=== PATIENT | female | born 1950 | race Asian ===

== ENCOUNTER 2020-01-05 12:11 | Inpatient (IN) | payer MEDICAID, MEDICARE ==
[~2020-01-05] VITALS: Ht 157.5 cm; Wt 83.9 kg
[2020-01-05 12:15] VITALS: BP 134/66
--- NOTE | 2020-01-05 12:22 | NUR ---
RN at bedside evaluating pt Med Hx: HTN, Hypothyroidism, DM, COPD, COPD, Afib, Long-term use of anticoagulant and antiarrhythmic Surgical Hx: Hip replacement, Hx of right mastectomy, knee replacement
[2020-01-05] MEDS ORDERED: NACL 0.9% 1,000 ML IV SCH (12:29)
--- NOTE | 2020-01-05 12:36 | NUR ---
SON AT BEDSIDE.
--- NOTE | 2020-01-05 12:36 | NUR ---
69 Y/F BIBA FROM [facility] FOR ABNORMAL LABS PER TRANPORT TEAM PT HAS PROBLEMS WTH LOW NA. EMS REPORTS GENERAL WEAKNESS "PT USED TO BE ABLE TO HOLD UP A CUP AND CANT NOW". PT REPORTS SAM. A&1 X 1, PTS SPEECH IS UNCLEAR. LUNGS CLEAR THROUGHOUT, BS ACTIVE THROUGHOUT. UNABLE TO ASSESS MUSLCE SYMMETRY AND MUSCLE STRENGTH DUE TO HX OF GBS. EDEMA NOTED ON B ARMS AND B HANDS. ABDOMEN LARGE, ROUND, AND DISTENDED. HX- COPD, CHF, DM, HTN, GBS, NKDA
--- NOTE | 2020-01-05 12:41 | NUR ---
Lab called for blood draw
--- NOTE | 2020-01-05 12:59 | NUR ---
LAB AT BEDSIDE.
--- NOTE | 2020-01-05 13:00 | NUR ---
URINE COLLECTED VIA STRAIGHT CATH USING STERILE PROCEDURE, PT TOLERATED WELL.
[2020-01-05 13:22] LABS: BASOPHILS % (AUTO) 0.3 % (0.0-2.0); EOSINOPHILS # (AUTO) 0.2 K/uL (0-0.4); EOSINOPHILS % (AUTO) 1.4 % (0.0-4.0); HEMATOCRIT 27.3 % (36-48); HEMOGLOBIN 8.6 g/dL (12.0-16.0); LYMPHOCYTES # (AUTO) 1.2 K/uL (2.5-16.5); LYMPHOCYTES % (AUTO) 9.2 % (20.5-51.1); MEAN CORPUSCULAR HEMOGLOBIN 25 pg (27-31); MEAN CORPUSCULAR HGB CONC 32 g/dL (33-37); MEAN CORPUSCULAR VOLUME 77.6 fL (80-94); MONOCYTES % (AUTO) 8.2 % (1.7-9.3); NEUTROPHILS # (AUTO) 10.3 K/uL (1.8-7.7); NEUTROPHILS % (AUTO) 80.9 % (42.2-75.2); PLATELET COUNT (AUTO) 379 K/uL (140-450); RED BLOOD CELL COUNT(AUTO) 3.52 MIL/uL (4.20-5.40); RED CELL DISTRIBUTION WIDTH 15.6 % (11.6-13.7); WHITE BLOOD COUNT (AUTO) 12.8 K/uL (4.8-10.8)
[2020-01-05 13:23] LABS: APPEARANCE,URINE CLOUDY (CLEAR); BILIRUBIN,URINE NEGATIVE (NEGATIVE); BLOOD, URINE 1+ (NEGATIVE); COLOR,URINE YELLOW (YELLOW); LEUKOCYTE ESTERASE ,URINE 3+ (NEGATIVE); NITRITE, URINE POSITIVE (NEGATIVE); UGLUCOSE NEGATIVE (NEGATIVE)
[2020-01-05 13:47] LABS: ALBUMIN 3.2 g/dL (3.4-5.0); ANION GAP 10.3 (8-16); ASPARTATE AMINOTRANSFERASE 32 U/L (15-37); CARBON DIOXIDE 33.3 mmol/L (21-32); CHLORIDE 90 mmol/L (98-107); CREATININE 0.4 mg/dL (0.6-1.3); GLUCOSE 128 mg/dL (74-106); POTASSIUM 4.6 mmol/L (3.5-5.1); SODIUM SERUM 129 mmol/L (136-145); TOTAL BILIRUBIN 0.3 mg/dL (0.0-1.0); UREA NITROGEN, BLOOD 5 mg/dL (7-18)
--- NOTE | 2020-01-05 13:58 | NUR ---
LACTIC ACID 2.[address] AU
[2020-01-05] MEDS ORDERED: cefTRIAXone 1,000 MG VIAL ONE (14:12)
[2020-01-05 14:33] LABS: WBC,URINE >25 (MANY) /HPF (0-5)
[2020-01-05] MEDS ORDERED: MORPHINE SULFATE 2 MG/ML SYR IVP PRN (15:05)
[2020-01-05] MEDS ORDERED: NACL 0.9% 1,500 ML IV ONE (15:05)
[2020-01-05] MEDS ORDERED: ONDANSETRON 4 MG/2 ML VIAL IM/IVP PRN (15:05)
[2020-01-05] MEDS ORDERED: LORazepam 2 MG/ML VIAL IM/IVP PRN (15:05)
[2020-01-05] MEDS ORDERED: AMLO5TAB PO (15:07)
[2020-01-05] MEDS ORDERED: ALEN70TA9 PO ×2 (15:07→17:53)
[2020-01-05] MEDS ORDERED: AMIO200T5 PO ×2 (15:07→17:14)
[2020-01-05] MEDS ORDERED: ASPI-1822 PO (15:07)
[2020-01-05] MEDS ORDERED: [UNRECOGNIZED DRUG - CODE] PO ×2 (15:10→17:47)
[2020-01-05] MEDS ORDERED: APIX5TAB PO (15:10)
[2020-01-05] MEDS ORDERED: SYN.05 PO (15:10)
[2020-01-05] MEDS ORDERED: CAR30 PO (15:10)
[2020-01-05] MEDS ORDERED: DIGO0.122 PO ×2 (15:10→17:14)
--- NOTE | 2020-01-05 15:20 | NUR ---
LAYING IN BED WITH EYES CLOSED, AROUSABLE TO NAME. RR EVEN AND UNLABORED. NO C/O AT THIS TIME WILL CONTINUE TO MONITOR
[2020-01-05 15:44] LABS: BARBITURATE, URINE NEG. ng/ml (NEG <=200); BENZODIAZEPINE, URINE NEG. ng/mL (NEG <=200); CANNABINOID, URINE NEG. ng/mL (NEG <=50); COCAINE, URINE NEG. ng/mL (NEG <=300); OPIATE, URINE NEG. ng/mL (NEG <=2000); PHENCYCLIDINE SCREEN,URINE NEG. ng/mL (NEG <=25)
[2020-01-05 15:52] LABS: CHOL/HDL RATIO 4.7 (1-4.5); FREE T4 (FREE THYROXINE) 1.75 ng/dL (0.76-1.46); MAGNESIUM 1.9 mg/dL (1.8-2.4); PHOSPHORUS 3.8 mg/dL (2.5-4.9); THYROID STIMULATING HORMONE 2.04 uIU/mL (0.34-3.74)
--- NOTE | 2020-01-05 15:55 | NUR ---
Admitted patient into room 123B from ED via gurney. Transferred to bed with 4-person total assist. Report received from ED nurse Brielle. Pt aaox1, verbally responsive in slovenian but has episodes of not responding to questions. Cervical brace in place. Medical hx obtained from Dinorah JEWELL from [facility] via telephone. 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 Cervical brace kept in place d/t poor neck control. Call light within reach.
--- NOTE | 2020-01-05 15:55 | NUR ---
Patient will be admitted to care of . Admited to TELEMETRY. Will go to room 123 B. Belongings list completed. Report to FANTA BOWERS.
[2020-01-05 16:00] VITALS: BP 135/57
[2020-01-05] MEDS: NACL 0.9% 1,000 ML IV SCH (16:00)
[2020-01-05 16:06] LABS: PROTHROMBIN TIME 10.2 secs (10.8-13.4)
[2020-01-05] MEDS ORDERED: PANT40EC PO (17:53)
[2020-01-05] MEDS ORDERED: METF1000 PO (17:53)
[2020-01-05] MEDS ORDERED: FURO-572 PO (17:53)
[2020-01-05] MEDS ORDERED: LISI10TA11 PO (17:53)
--- NOTE | 2020-01-05 18:00 | NUR ---
Pt in high fowlers in bed, asleep, respirations even & nonlabored on O2 @ 2Lpm via n/c. Soft collar in place. Right EJ IV intact with ongoing NS @ 130ml/h. Call light within reach.
[2020-01-05] MEDS ORDERED: DEXTROSE 50% 50 ML SYR IVP PRN (18:05)
[2020-01-05] MEDS ORDERED: INSU100S22 SUBQ (18:07)
[2020-01-05] MEDS: ALBUTEROL SULFATE/IPRATROPIU 3 ML SOL IH SCH (19:06)
--- NOTE | 2020-01-05 19:25 | NUR ---
RECEIVED BEDSIDE REPORT FROM DAY SHIFT NURSEELISSA. PT HAVING BREATHING TREATMENT. BREATHING EVEN AND UNLABORED. SKIN INTACT, WARM AND DRY TO TOUCH. IV SITE ON R IJ 20G, PATENT, INTACT, AND ASYMPTOMATIC. BOARD UPDATED, ALL SAFETY MEASUREMENT ARE MET. BED IN LOW POSITION, CALL LIGHT WITHIN REACH.
[2020-01-05 20:00] VITALS: BP 156/56
[2020-01-05] MEDS: DILTIAZEM 30 MG TAB PO SCH (20:10)
[2020-01-05] MEDS: BLOOD GLUCOSE MONITORING 1 DEV DEV FS SCH (20:10)
[2020-01-05] MEDS: amLODIPine 5 MG TAB PO SCH (20:11)
[2020-01-05] MEDS: metFORMIN 500 MG TAB PO SCH (20:11)
[2020-01-05] MEDS: INSULIN LANTUS 100 UNITS/ML 10 ML VIAL SUBQ SCH (20:20)
[2020-01-05] MEDS: INSULIN LISPRO SLIDING SCALE 100 UNITS/ML VIAL SUBQ PRN (20:20)
[2020-01-05] MEDS: APIXABAN 2.5 MG TAB PO SCH (20:20)
--- NOTE | 2020-01-05 20:20 | NUR ---
GIVEN CARDIZEM, ELIQUIS, METFORMIN, AMLODIPINE. BS CHECKED, 152, GIVEN HUMALOG AND LANTUS MD ORDERED. PT TOLERATED WELL.
[2020-01-05] MEDS ORDERED: NON-FORMULARY ITEM (Insulin Glargine,Hum.rec.anlog (Lantus Solostar) 20 UNIT) SUBQ SCH (21:00)
[2020-01-05] MEDS ORDERED: ZOLPIDEM 5 MG TAB PO PRN (21:00)
--- NOTE | 2020-01-05 22:20 | NUR ---
PT SLEEPING IN BED, NO ACUTE DISTRESS NOTED.
[2020-01-06] VITALS: BP 140/47
--- NOTE | 2020-01-06 00:05 | NUR ---
VS WITHIN PT'S BASELINE. NO ACUTE DISTRESS NOTED.
[2020-01-06] MEDS: guaiFENesin/CODEINE 100/10MG 5 ML UDC PO PRN ×2 (02:45→10:31)
--- NOTE | 2020-01-06 02:45 | NUR ---
PT COUGHING, GIVEN ROBITUSSIN/CODEINE MD ORDERED. PT TOLERATED WELL.
[2020-01-06 04:00] VITALS: BP 132/44
[2020-01-06] MEDS: DILTIAZEM 30 MG TAB PO SCH ×3 (04:20→20:16)
--- NOTE | 2020-01-06 04:20 | NUR ---
GIVEN CARDIZEM MD ORDERED, PT TOLERATED WELL.
[2020-01-06] MEDS: LEVOTHYROXINE 0.05 MG TAB PO SCH (05:55)
--- NOTE | 2020-01-06 05:55 | NUR ---
GIVEN SYNTHROID MD ORDERED. PT TOLERATED WELL. BS CHECKED, 104. NO INSULIN COVERAGE NEEDED.
[2020-01-06] MEDS: BLOOD GLUCOSE MONITORING 1 DEV DEV FS SCH ×5 (06:00→20:15)
[2020-01-06] MEDS: NACL 0.9% 1,000 ML IV SCH ×3 (06:26→16:27)
--- NOTE | 2020-01-06 06:41 | NUR ---
PT IN STABLE CONDITION, WILL ENDORSE PT TO DAY SHIFT NURSE FOR CONTINUOUS CARE.
[2020-01-06] MEDS: ALBUTEROL SULFATE/IPRATROPIU 3 ML SOL IH SCH ×3 (06:55→19:21)
--- NOTE | 2020-01-06 07:20 | NUR ---
RECEIVED PT FROM FUND ACCOUNTANT NURSE, CIRA, PT IS AWAKE AND SEATED ON THE BED, WITH SIDE RAILS UP AND CALL LIGHT WITHIN REACH, PT HAS A NECK COLLAR IN PLACE, AND AN IV LINE ON THE RT EJ G. 20 WITH NS INFUSING AT 130ML/HR, BUE AND BLE SEVERE WEAKNESS NOTED, SCD IN PLACE, ON O2 2L NC, PT HAS AN INTERMITTENT PRODUCTIVE COUGH, NO SIGN OF DISTRESS NOTED. WILL CONTINUE TO MONITOR PT.
[2020-01-06 07:57] VITALS: BP 156/45
--- NOTE | 2020-01-06 08:18 | NUR ---
PATIENT HAS BEEN SCREENED AND CATEGORIZED MODERATE NUTRITION RISK. PATIENT WILL BE SEEN WITHIN 3-5 DAYS OF ADMISSION. 01/08/20 01/10/[address]
[2020-01-06] MEDS ORDERED: IRBESARTAN 75 MG PO SCH (09:00)
[2020-01-06] MEDS: LISINOPRIL 10 MG TAB PO SCH (09:00)
[2020-01-06] MEDS ORDERED: IRBESARTAN 150 MG PO SCH (09:00)
--- NOTE | 2020-01-06 09:50 | NUR ---
HIP AND CHEST X-RAY WAS BEING DONE TO PT NOW.
[2020-01-06] MEDS: PANTOPRAZOLE 40 MG TABEC PO SCH (10:25)
[2020-01-06] MEDS: ASPIRIN 81 MG TAB.CHEW PO SCH (10:25)
[2020-01-06] MEDS: metFORMIN 500 MG TAB PO SCH ×2 (10:25→20:16)
[2020-01-06] MEDS: LACTOBACILLUS RHAMNOSUS GG 1 EACH CAP PO SCH (10:25)
[2020-01-06] MEDS: amLODIPine 5 MG TAB PO SCH ×2 (10:26→20:16)
[2020-01-06] MEDS: FUROSEMIDE 20 MG TAB PO SCH (10:26)
[2020-01-06] MEDS: AMIODARONE 200 MG TAB PO SCH (10:27)
[2020-01-06] MEDS: LOSARTAN 25 MG TAB PO SCH (10:28)
[2020-01-06] MEDS: APIXABAN 2.5 MG TAB PO SCH ×2 (10:30→20:19)
[2020-01-06] MEDS: HYDROcodone/APAP 5/325 MG 1 TAB TAB PO PRN (10:31)
--- NOTE | 2020-01-06 10:45 | NUR ---
DC PLANNIN YRS OLD FEMALE PATIENT WAS ADMITTED FROM [facility] WITH A DX OF SEVER SEPSIS DUE TO UTI. PT HAS A HX OF GUILLAIN RODRIGUEZ SYNDROME,COPD, CHRONIC RESP FAILURE,CHF,HTN, BREAST CA S/P RT BREAST MASTECTOMY. STARTED ROCEPHIN IV CULTURELLE PROBIOTIC PO ,IVF PT EVAL, BLOOD AND URINE CULTURE PENDING ,CXRAY SHOWED POSSIBLE INFILTRATES RIGHT HIP X-RAY PENDING FOR C/O RT HIP PAIN. DC PLAN TO GO BACK TO [facility] WHEN STABLE .CM TO FOLLOW. Addendum: 01/09/20 at 1503 by Mady Loera CM DC PLANNING: SEEN BY DR GONZALEZ GEAR DESIGN ENGINEER DC/D IVF, CONTINUE IV LASIX AND IV ABX MEROPENEM. DC PLAN TO GO BACK TO [facility] . CM TO FOLLOW Addendum: 01/10/20 at 1137 by Mady Loera CM DC PLANNING: SEEN BY ANDER CHOW DC IVF , CONTINUE IV ABX , BREATHING TREATMENT ,PT IS ON OXYMIZER 5L/NC , DR BENITES CONTINUE IV MEROPENEM . DC PLAN TO GO BACK TO [facility] WHEN STABLE. CM TO FOLLOW. Addendum: 01/11/20 at 3977 by Mady Loera CM DC PLANNING: CALLED [facility] [phone] SPOKE WITH GAGANDEEP STATED NO ISO BED AT THIS TIME. WILL CALL BACK WHEN ISO BED AVAILABLE. Addendum: 01/11/20 at 8544 by Mady Loera CM DC PLANNING: PER GAGANDEEP AT [facility] PT IS ON BED HOLD FOR 7 DAYS BUT SINCE SHE IS ON ISOLATION AND NEEDS IV MEROPENEM Q 8HRS AND HAS NO RN AT NIGHT THEY WILL CONSIDER TO TAKE HER BACK WHEN SHE IS COLONIZED. Addendum: 01/12/20 at 1637 by Mady Loera CM DC PLANNING CALLED [facility] SPOKE WITH GAGANDEEP RAM NO ISO BED. FAXED TO OTHER FACILITIES: [facility], [facility], [facility], [facility], [facility], AND [facility]. THEY ALL STATED NO ISO BED TODAY AND WILL CALL BACK WHEN ISO BED AVAILABLE. Addendum: 01/13/20 at 1609 by Mady Loera CM DC PLANNING: RECEIVED A CALL FROM GAGANDEEP AT [facility] , ACCEPTED PATIENT AND CAN GO TO ROOM 100A ON Thursday01/15/20 # TO GIVE REPORT [phone] ARRANGED TRANSPORT WITH [facility] [phone] # [id number] AND RESERVATION # [id number] SPOKE WITH BENJA AND AUTOMOTIVE TIRE WORKER TIME 1PM . PLS CALL GAGANDEEP AT [facility] [phone]
--- NOTE | 2020-01-06 11:25 | NUR ---
BLOOD GLUCOSE CHECKED NOW WITH 144 RESULT. NO INSULIN COVERAGE NEEDED. NO SIGNS OF DISTRESS. WILL CONTINUE TO MONITOR.
--- NOTE | 2020-01-06 11:27 | NUR ---
BLOOD GLUCOSE CHECK DONE TO PT AND RESULT IS 144, NO INSULIN COVERAGE NEEDED.
[2020-01-06 12:00] VITALS: BP 147/55
--- NOTE | 2020-01-06 12:05 | NUR ---
Material Reclaimer Note: I received a call from patient's son Sree Casas , he stated he would like me to check if the following snfs have a termite inspector bed available, [facility] , fax , [facility] , fax , and [facility] , fax . I faxed inquiries to [facility], [facility], and [facility]. Per Shalonda from [facility], they have 5 chcf beds available at this time and they will review referral once it is received. I provided Shalonda with patient's todd Balbuena phone number. Patient is from [facility] and patient's son Sree is in agreement with patient returning to [facility] if the above snfs cannot accept patient.
[2020-01-06 13:44] LABS: BASOPHILS % (AUTO) 0.3 % (0.0-2.0); EOSINOPHILS # (AUTO) 0.1 K/uL (0-0.4); EOSINOPHILS % (AUTO) 1.2 % (0.0-4.0); HEMATOCRIT 24.8 % (36-48); HEMOGLOBIN 7.9 g/dL (12.0-16.0); MEAN CORPUSCULAR HEMOGLOBIN 25 pg (27-31); MEAN CORPUSCULAR HGB CONC 32 g/dL (33-37); MEAN CORPUSCULAR VOLUME 77.4 fL (80-94); MONOCYTES # (AUTO) 0.9 K/uL (0.8-1.0); MONOCYTES % (AUTO) 7.7 % (1.7-9.3); NEUTROPHILS # (AUTO) 9.3 K/uL (1.8-7.7); NEUTROPHILS % (AUTO) 81.8 % (42.2-75.2); PLATELET COUNT (AUTO) 340 K/uL (140-450); RED CELL DISTRIBUTION WIDTH 15.4 % (11.6-13.7); WHITE BLOOD COUNT (AUTO) 11.4 K/uL (4.8-10.8)
[2020-01-06 13:53] LABS: ANION GAP 10.2 (8-16); CARBON DIOXIDE 31.8 mmol/L (21-32); CHLORIDE 95 mmol/L (98-107); CREATININE 0.4 mg/dL (0.6-1.3); GLUCOSE 163 mg/dL (74-106); SODIUM SERUM 133 mmol/L (136-145); UREA NITROGEN, BLOOD 2 mg/dL (7-18)
--- NOTE | 2020-01-06 13:58 | NUR ---
AFTERNOON MEDICATION GIVEN. PT. IS AWAKE AND IN BED. TOLERATED MEDICATION WELL. NO SIGNS OF DISTRESS. WILL CONTINUE TO MONITOR.
--- NOTE | 2020-01-06 15:17 | NUR ---
GAGANDEEP, ADMISSION COORDINATOR OF [facility] CALLED INFORMING THAT THE PT WILL BE PLACE ON A 7 DAYS BED HOLD. GAGANDEEP SAID SHE LEFT A MESSAGE TO STANLEY BARON.
--- NOTE | 2020-01-06 15:50 | NUR ---
P.T. NOTES P.T. CARLY COMPLETED; ENDORSED TO NURSING. Addendum: 01/06/20 at 1551 by Lynsey Riley PT Amended: Links added.
[2020-01-06 16:00] VITALS: BP 157/50
--- NOTE | 2020-01-06 16:29 | NUR ---
PT WAS GIVEN IV ROCEPHIN, BLOOD GLUCOSE CHECK DONE AND RESULT IS 147, NO INSULIN COVERAGE NEEDED, V/S TAKEN AND BP IS 157/50, HR 82, TEMP 98.7, O2 SAT 93% ON 2L O2.
--- NOTE | 2020-01-06 17:00 | NUR ---
PT'S IVF RATE WAS DECREASED TO 60ML/HR NOW PER MD.
--- NOTE | 2020-01-06 19:35 | NUR ---
RECIEVED PT AAOX2 TO 3 - EASILY FORGETS THE TOPIC CONVERSATION , POOR HISTORIAN , ON O2 AT 2LPM/NC - O2 SAT WNL , W/ PRODUCTIVE COUGH W/ WHITE PHLEGM . ON RESIDENTIAL THERAPIST , IV EMELI INTACT AND PATENT. LOW EDWIN SCALE DUE TO LILIMITED MOBILITY - HX GBS . POC DISCUSSED AND VERBALIZE FAIR UNDERSTANDING - NEEDS RE INFORCEMENT , CALL LIGHT WITHIN REACH , ON SAFETY / FALL PRECAUTION PROTOCOL . WILL CONT. TO MONITOR.
--- NOTE | 2020-01-06 19:35 | NUR ---
ENDORSED PT. TO COVER OPERATOR NURSE FOR CONTINUITY OF CARE.
--- NOTE | 2020-01-06 19:53 | NUR ---
GAVE PATIENT BOB TO SXNED HER MOUTH
[2020-01-06 20:00] VITALS: BP 136/67
[2020-01-06] MEDS: ACETAMINOPHEN 325 MG TAB PO PRN (20:25)
[2020-01-06] MEDS: INSULIN LANTUS 100 UNITS/ML 10 ML VIAL SUBQ SCH (20:27)
[2020-01-06] MEDS: INSULIN LISPRO SLIDING SCALE 100 UNITS/ML VIAL SUBQ PRN (20:49)
--- NOTE | 2020-01-06 22:00 | NUR ---
MADE ROUNDS , RELATIVES AT BEDSIDE . O2 SAT WNL - ON O2 AT 2LPM/NC , ON DIRECTOR RISK. WILL CONT. TO MONITOR.
[2020-01-07] VITALS: BP 135/82
--- NOTE | 2020-01-07 | NUR ---
VS CHECKED AND CHARTED. PT REPOSITIONED, FOUND OXYGEN TUBING NOT ON PATIENT, TUBING REAPPLIED. PT INTERMITTENTLY COUGHING, CLEANED UP SPUTUM ON CHIN. MADE PT COMFORTABLE, PT DENIES ANY PAIN AT THIS TIME. Addendum: 01/08/20 at 0646 by Berenice Funk RN CORRECTED DATE: 01/08 0000
--- NOTE | 2020-01-07 | NUR ---
MADE ROUNDS , DENIES ANY PAIN - O2 SAT. WNL - ON TUBE BLOWER. WILL CONT. TO MONITOR.
--- NOTE | 2020-01-07 02:00 | NUR ---
MADE ROUNDS , SHE SAID MY STOOL IS SEEMS HARD - WILL MEDICATE ORDERED . O2 SAT WNL - ON 02 AT 2LPM.- WILL CONT. TO MONITOR.
[2020-01-07] MEDS: NACL 0.9% 1,000 ML IV SCH ×2 (03:29→16:02)
[2020-01-07 04:00] VITALS: BP 130/90
--- NOTE | 2020-01-07 04:00 | NUR ---
ROBITUSSIN W/ CODEINE GIVEN P.O DUE TO PERSISTENT COUGH ORDERED . COLACE GIVEN ORDERED . O2 SAT WNL . WILL CONT. TO MONITOR.
[2020-01-07] MEDS: DOCUSATE SODIUM 100 MG GELCAP PO PRN (04:04)
[2020-01-07] MEDS: DILTIAZEM 30 MG TAB PO SCH ×3 (04:04→20:31)
[2020-01-07] MEDS: guaiFENesin/CODEINE 100/10MG 5 ML UDC PO PRN ×2 (04:05→20:33)
--- NOTE | 2020-01-07 06:00 | NUR ---
MADE ROUNDS , O2 SAT WNL , DENIES ANY PAIN , ON NATURAL RESOURCES PROFESSOR - SR
--- NOTE | 2020-01-07 06:15 | NUR ---
LATEST CR ON TRACING - 50 , LATEST BP 90/60 , DENIES CHEST PAIN , RESTING ON BED COMFORTABLY - INFORMED ROSA . WILL CONT. TO MONITOR. CALL LIGHT WITHIN REACH. Addendum: 01/07/20 at 0618 by Mary Collado RN THE ABOVE NURSES'S NOTE DATED 01/07/20 TIME 0615 IS AN ERROR ENTRY - MARCELLE
[2020-01-07] MEDS: LEVOTHYROXINE 0.05 MG TAB PO SCH (06:28)
[2020-01-07 06:58] LABS: BASOPHILS # (AUTO) 0.1 K/uL (0.00-0.22); BASOPHILS % (AUTO) 0.4 % (0.0-2.0); EOSINOPHILS # (AUTO) 0.2 K/uL (0-0.4); EOSINOPHILS % (AUTO) 1.6 % (0.0-4.0); HEMATOCRIT 24.3 % (36-48); HEMOGLOBIN 7.8 g/dL (12.0-16.0); LYMPHOCYTES % (AUTO) 8.4 % (20.5-51.1); MEAN CORPUSCULAR HEMOGLOBIN 25 pg (27-31); MEAN CORPUSCULAR HGB CONC 32 g/dL (33-37); MONOCYTES # (AUTO) 1.1 K/uL (0.8-1.0); MONOCYTES % (AUTO) 8.8 % (1.7-9.3); NEUTROPHILS # (AUTO) 9.7 K/uL (1.8-7.7); NEUTROPHILS % (AUTO) 80.8 % (42.2-75.2); PLATELET COUNT (AUTO) 332 K/uL (140-450); RED BLOOD CELL COUNT(AUTO) 3.15 MIL/uL (4.20-5.40); RED CELL DISTRIBUTION WIDTH 16.2 % (11.6-13.7)
[2020-01-07 07:07] LABS: ANION GAP 7.5 (8-16); CARBON DIOXIDE 32.9 mmol/L (21-32); CHLORIDE 96 mmol/L (98-107); CREATININE 0.3 mg/dL (0.6-1.3); GLUCOSE 129 mg/dL (74-106); POTASSIUM 3.4 mmol/L (3.5-5.1); SODIUM SERUM 133 mmol/L (136-145); UREA NITROGEN, BLOOD 1 mg/dL (7-18)
[2020-01-07 07:08] LABS: MAGNESIUM 1.4 mg/dL (1.8-2.4)
[2020-01-07] MEDS: ALBUTEROL SULFATE/IPRATROPIU 3 ML SOL IH SCH ×3 (07:10→19:16)
--- NOTE | 2020-01-07 07:18 | NUR ---
ENDORSED TO AM SHIFT FOR CONT. OF CARE - PT STABLE .
--- NOTE | 2020-01-07 07:19 | NUR ---
RECEIVED REPORT FROM NIGHT NURSE, PT AA0X2, PT ON 2L NC O2, PT HAS R EXTERNAL JUGULAR 20G RUNNING NS AT 60 ML, INTRODUCE SELF, UPDATED WHITEBOARD, PT IS STABLE, CALL LIGHT WITHIN REACH. WILL CONTINUE TO MONITOR.
[2020-01-07 08:00] VITALS: BP 155/50
[2020-01-07] MEDS ORDERED: MAG SULF 2000 MG/WATER PREMIX 50 ML IV SCH (09:00)
[2020-01-07] MEDS ORDERED: POTASSIUM CHLORIDE 10 MEQ TABER PO SCH (09:00)
[2020-01-07] MEDS: FUROSEMIDE 20 MG TAB PO SCH (09:39)
[2020-01-07] MEDS: LACTOBACILLUS RHAMNOSUS GG 1 EACH CAP PO SCH (09:40)
[2020-01-07] MEDS: AMIODARONE 200 MG TAB PO SCH (09:41)
[2020-01-07] MEDS: LISINOPRIL 10 MG TAB PO SCH (09:41)
[2020-01-07] MEDS: ASPIRIN 81 MG TAB.CHEW PO SCH (09:42)
[2020-01-07] MEDS: metFORMIN 500 MG TAB PO SCH ×2 (09:42→20:32)
[2020-01-07] MEDS: LOSARTAN 25 MG TAB PO SCH (09:42)
[2020-01-07] MEDS: PANTOPRAZOLE 40 MG TABEC PO SCH (09:43)
[2020-01-07] MEDS: amLODIPine 5 MG TAB PO SCH ×2 (09:43→20:31)
[2020-01-07] MEDS: DIGOXIN 0.125 MG TAB PO SCH (09:44)
[2020-01-07] MEDS: ALBUTEROL SULFATE/IPRATROPIU 3 ML SOL IH PRN ×2 (09:44→17:57)
[2020-01-07] MEDS: APIXABAN 2.5 MG TAB PO SCH ×2 (09:45→20:31)
--- NOTE | 2020-01-07 11:26 | NUR ---
CALLED DR PALENCIA FOR AN ORDERED OF Z-GUARD FOR PT PERINEAL, WILL APPLY ONCE ORDERED RECEIVED
[2020-01-07] MEDS: BLOOD GLUCOSE MONITORING 1 DEV DEV FS SCH ×3 (11:59→20:47)
[2020-01-07 12:00] VITALS: BP 154/56
[2020-01-07] MEDS: INSULIN LISPRO SLIDING SCALE 100 UNITS/ML VIAL SUBQ PRN ×3 (12:11→20:18)
--- NOTE | 2020-01-07 12:11 | NUR ---
GAVE PT LISPRO FOR BLOOD GLUCOSE OF 167, 2 UNITS, PT EDUCATION GIVEN, PT TOLERATED WELL, CALL LIGHT WITHIN REACH.
[2020-01-07] MEDS: ACETAMINOPHEN 325 MG TAB PO PRN (12:37)
--- NOTE | 2020-01-07 12:37 | NUR ---
GAVE PT TYLENOL FOR HEADACHE, EDUCATION GIVEN, PT VERBALIZED UNDERSTANDING, PT STABLE, CALL LIGHT WITHIN REACH.
--- NOTE | 2020-01-07 13:20 | NUR ---
PT STILL HAS HEADACHE, PUT COOLING COMPRESSION ON HEAD, SON AT BEDSIDE, PT STABLE, CALL LIGHT WITHIN REACH.
[2020-01-07 16:00] VITALS: BP 161/55
--- NOTE | 2020-01-07 16:00 | NUR ---
PT MORE COOLING MEASURES ON PT PT STATES SHE IS FEELING HOT, PT DOES NOT HAVE A TEMPERATURE, CALL LIGHT WITHIN REACH.
[2020-01-07 16:36] LABS: BASOPHILS # (AUTO) 0.1 K/uL (0.00-0.22); BASOPHILS % (AUTO) 0.4 % (0.0-2.0); EOSINOPHILS # (AUTO) 0.1 K/uL (0-0.4); EOSINOPHILS % (AUTO) 0.4 % (0.0-4.0); HEMATOCRIT 23.1 % (36-48); HEMOGLOBIN 7.4 g/dL (12.0-16.0); LYMPHOCYTES # (AUTO) 0.9 K/uL (2.5-16.5); LYMPHOCYTES % (AUTO) 7.1 % (20.5-51.1); MEAN CORPUSCULAR HEMOGLOBIN 25 pg (27-31); MEAN CORPUSCULAR HGB CONC 32 g/dL (33-37); MEAN CORPUSCULAR VOLUME 76.7 fL (80-94); MONOCYTES # (AUTO) 1.2 K/uL (0.8-1.0); MONOCYTES % (AUTO) 9.4 % (1.7-9.3); NEUTROPHILS # (AUTO) 10.5 K/uL (1.8-7.7); NEUTROPHILS % (AUTO) 82.7 % (42.2-75.2); PLATELET COUNT (AUTO) 341 K/uL (140-450); RED BLOOD CELL COUNT(AUTO) 3.01 MIL/uL (4.20-5.40); RED CELL DISTRIBUTION WIDTH 15.7 % (11.6-13.7); WHITE BLOOD COUNT (AUTO) 12.7 K/uL (4.8-10.8)
[2020-01-07] MEDS: FERROUS SULFATE 325 MG TABEC PO SCH (18:38)
--- NOTE | 2020-01-07 19:05 | NUR ---
GAVE REPORT TO NIGHT NURSE FOR CONTINUITY OF CARE, PT STABLE
--- NOTE | 2020-01-07 19:10 | NUR ---
RECEIVED BEDSIDE REPORT FROM AM SHIFT RN GRISELDA, FOR PT'S CONTINUITY OF CARE. PT IS AWAKE AND ALERT, PRIMARILY MONGOLIAN SPEAKING, CAN SPEAK AND UNDERSTAND SOME BENGALI, IS ON 3 1/2 O2 VIA NC, HAS NECK BRACE FROM CERVICAL FRACTURE IN 2019, HAS RIGHT EXTERNAL JUGULAR 20G NS AT 60ML/HR, DENIES ANY PAIN OR DISCOMFORT AT THIS TIME. EXPLAIN TO PT THE LAUNCHING PAD MECHANIC ROUTINE, PT VERBALIZED UNDERSTANDING. SAFETY MEASURES IN PLACE, AND CALL LIGHT IS WITHIN REACH. WILL MONITOR PT THROUGHOUT SHIFT.
--- NOTE | 2020-01-07 19:22 | NUR ---
RECEIVED PT FROM AM SHIFT. PT IN NO APPARENT RESPIRATORY DISTRESS AT THIS TIME; HR 94, RR 20, SPO2 94% ON 4L NC. TITRATE O2 TO 3L NC WITH SPO2 OF 92%. HHN TX GIVEN ORDERED WITH NO ADVERSE REACTION. BVM AT BEDSIDE AND HOB > 30. WILL CONTINUE TO MONITOR PT.
[2020-01-07 20:00] VITALS: BP 153/55
[2020-01-07] MEDS: INSULIN LANTUS 100 UNITS/ML 10 ML VIAL SUBQ SCH (20:17)
[2020-01-07] MEDS ORDERED: PIPERACILLIN/TAZOBACTAM 3.375 GM VIAL IV ONE (20:23)
[2020-01-07] MEDS: PIPERACILLIN/TAZOBACTAM 3.375 GM in DEXTROSE 5% 50 ML IV SCH (20:32)
--- NOTE | 2020-01-07 20:33 | NUR ---
BLOOD GLUCOSE CHECKED AND CHARTED. PT REQUESTED FOR COUGH MEDICINE. ADMINISTERED SCHEDULED PO, SUBQ, AND IV ABX ORDERED. ADMINISTERED SUBQ INSULIN PER SS PROTOCOL, AND ADMINISTERED PRN COUGH MEDICATION ORDERED. CRUSHED PO MEDICATION IN APPLESAUCE, PT TOLERATED THEM WELL. PT CHANGED AND MADE COMFORTABLE, APPLIED OPTIFOAM ON SACRAL AREA. PT DENIES PAIN. WILL CONTINUE TO MONITOR PT.
[2020-01-07] MEDS: Z-GUARD PASTE TP PRN (20:52)
[2020-01-08] VITALS: BP 157/64
--- NOTE | 2020-01-08 02:00 | NUR ---
MADE ROUNDS. PT APPEARS TO BE ASLEEP WITH NO SIGNS OF DISTRESS. WILL CONTINUE TO MONITOR PT.
[2020-01-08 04:00] VITALS: BP 157/65
[2020-01-08] MEDS: ACETAMINOPHEN 325 MG TAB PO PRN (04:31)
--- NOTE | 2020-01-08 04:31 | NUR ---
PT C/O HEADACHE. ADMINISTERED PRN PO PAIN MEDICATION ORDERED. PT TOLERATED IT WELL. MADE PT COMFORTABLE AND ENCOURAGED PT TO GET SOME REST AND SLEEP.
[2020-01-08] MEDS: PIPERACILLIN/TAZOBACTAM 3.375 GM in DEXTROSE 5% 50 ML IV SCH ×3 (04:33→21:22)
[2020-01-08] MEDS ORDERED: PIPERACILLIN/TAZOBACTAM 3.375 GM VIAL IV ONE (04:33)
[2020-01-08] MEDS: LEVOTHYROXINE 0.05 MG TAB PO SCH (05:38)
[2020-01-08] MEDS: DILTIAZEM 30 MG TAB PO SCH ×3 (05:39→21:19)
--- NOTE | 2020-01-08 05:45 | NUR ---
BLOOD GLUCOSE CHECKED AND CHARTED. NO INSULIN COVERAGE NEEDED. ADMINISTERED SCHEDULED MEDICATIONS ORDERED. PT TOLERATED THEM WELL. PLACED FOAM CUSHION ON OXYGEN TUBING FOR COMFORT. MADE PT COMFORTABLE.
[2020-01-08] MEDS: BLOOD GLUCOSE MONITORING 1 DEV DEV FS SCH ×4 (05:48→21:28)
--- NOTE | 2020-01-08 06:21 | NUR ---
PT APPEARS TO BE ASLEEP. NOTED TO BE YELLING INTERMITTENTLY FOR NURSE. CHECKED PT BUT PT APPEARS TO BE ASLEEP. NO SIGNS OF DISTRESS NOTED. WILL ENDORSE TO AM SHIFT RN FOR PT'S CONTINUITY OF CARE.
[2020-01-08 07:16] LABS: BASOPHILS # (AUTO) 0.1 K/uL (0.00-0.22); EOSINOPHILS # (AUTO) 0.1 K/uL (0-0.4); EOSINOPHILS % (AUTO) 0.8 % (0.0-4.0); HEMATOCRIT 24.5 % (36-48); LYMPHOCYTES # (AUTO) 1.5 K/uL (2.5-16.5); LYMPHOCYTES % (AUTO) 10.5 % (20.5-51.1); MEAN CORPUSCULAR HEMOGLOBIN 25 pg (27-31); MEAN CORPUSCULAR HGB CONC 33 g/dL (33-37); MEAN CORPUSCULAR VOLUME 75.7 fL (80-94); MONOCYTES # (AUTO) 1.3 K/uL (0.8-1.0); MONOCYTES % (AUTO) 8.6 % (1.7-9.3); NEUTROPHILS # (AUTO) 11.6 K/uL (1.8-7.7); NEUTROPHILS % (AUTO) 79.1 % (42.2-75.2); PLATELET COUNT (AUTO) 384 K/uL (140-450); RED BLOOD CELL COUNT(AUTO) 3.24 MIL/uL (4.20-5.40); RED CELL DISTRIBUTION WIDTH 15.8 % (11.6-13.7); WHITE BLOOD COUNT (AUTO) 14.6 K/uL (4.8-10.8)
[2020-01-08] MEDS: ALBUTEROL SULFATE/IPRATROPIU 3 ML SOL IH SCH ×3 (07:16→19:57)
[2020-01-08 07:23] LABS: ANION GAP 10.1 (8-16); CARBON DIOXIDE 30.9 mmol/L (21-32); CHLORIDE 93 mmol/L (98-107); CREATININE 0.4 mg/dL (0.6-1.3); GLUCOSE 103 mg/dL (74-106); SODIUM SERUM 130 mmol/L (136-145); UREA NITROGEN, BLOOD 4 mg/dL (7-18)
[2020-01-08 07:28] LABS: MAGNESIUM 1.8 mg/dL (1.8-2.4); PHOSPHORUS 3.9 mg/dL (2.5-4.9)
--- NOTE | 2020-01-08 07:30 | NUR ---
RECEIVED REPORT FROM TOWER SUPERVISOR RN AT BEDSIDE FOR CONTINUITY OF CARE. PATIENT AWAKE AND ALERT. RESPIRATIONS EVEN AND UNLABORED ON 3L O2 VIA NC. IV SITE TO RT EXTERNAL JUGULAR, PATENT, INTACT, ASYMPTOMATIC INFUSING IVF WELL. UPDATED BOARD. PATIENT DENIES PAIN AT THIS TIME. VERBALIZED PLAN OF CARE TO PATIENT. SHE VERBALIZED UNDERSTANDING. SAFETY, ISOLATION, AND ASPIRATION PRECAUTIONS IN PLACE, BED IN LOWEST POSITION WITH BRAKES AND ALARM ON, CALL LIGHT WITHIN REACH, WILL CONTINUE TO MONITOR PATIENT.
[2020-01-08 08:00] VITALS: BP 139/53
[2020-01-08] MEDS ORDERED: CRUSHER, PILL MC ONE (09:49)
[2020-01-08] MEDS: LACTOBACILLUS RHAMNOSUS GG 1 EACH CAP PO SCH (09:52)
[2020-01-08] MEDS: metFORMIN 500 MG TAB PO SCH ×2 (09:52→21:21)
[2020-01-08] MEDS: AMIODARONE 200 MG TAB PO SCH (09:56)
[2020-01-08] MEDS: amLODIPine 5 MG TAB PO SCH ×2 (09:57→21:19)
[2020-01-08] MEDS: FUROSEMIDE 20 MG TAB PO SCH ×2 (09:58→21:24)
[2020-01-08] MEDS: FERROUS SULFATE 325 MG TABEC PO SCH ×2 (09:58→16:18)
[2020-01-08] MEDS: PANTOPRAZOLE 40 MG TABEC PO SCH (09:58)
[2020-01-08] MEDS: LISINOPRIL 20 MG TAB PO SCH (09:59)
[2020-01-08] MEDS: ASPIRIN 81 MG TAB.CHEW PO SCH (10:00)
[2020-01-08] MEDS: APIXABAN 2.5 MG TAB PO SCH ×2 (10:01→21:25)
[2020-01-08] MEDS: NACL 0.9% 1,000 ML IV SCH (10:03)
--- NOTE | 2020-01-08 10:05 | NUR ---
ORDERED MEDICATIONS GIVEN. PATIENT TOLERATED THEM WELL. SAFETY AND ISOLATION PRECAUTIONS IN PLACE, CALL LIGHT WITHIN REACH, WILL CONTINUE TO MONITOR PATIENT.
[2020-01-08] MEDS ORDERED: FUROSEMIDE 20 MG/2 ML VIAL IVP SCH (10:30)
--- NOTE | 2020-01-08 10:31 | NUR ---
PATIENT C/O PAIN ON RIGHT KNEE, PRN PAIN MEDICATION GIVEN. PATIENT TOLERATED IT WELL. WILL CONTINUE TO MONITOR PATIENT.
[2020-01-08 12:45] VITALS: BP 139/56
--- NOTE | 2020-01-08 13:18 | NUR ---
PATIENT'S FAMILY REQUESTED TO SPEAK TO DOCTOR. INFORMED DR. PALENCIA. DR PALENCIA IN TO SPEAK TO PATIENT'S FAMILY MEMBERS.
[2020-01-08 16:00] VITALS: BP 136/50
[2020-01-08] MEDS: Z-GUARD PASTE TP PRN (16:18)
[2020-01-08] MEDS: HYDROcodone/APAP 5/325 MG 1 TAB TAB PO PRN ×2 (17:06→21:50)
[2020-01-08] MEDS: INSULIN LISPRO SLIDING SCALE 100 UNITS/ML VIAL SUBQ PRN ×2 (17:11→21:32)
--- NOTE | 2020-01-08 17:11 | NUR ---
BLOOD SUGAR 189, COVERAGE GIVEN. PT C/O OF NECK PAIN, PATIENT MEDICATION WITH PRN PAIN MEDICATION. PATIENT TOLERATED IT WELL. PATIENT'S DAUGHTER HORACE AND FAMILY IN TO VISIT PATIENT. DR. PALENCIA SPOKE WITH HORACE AND UPDATED HER WITH PATIENT'S STATUS AND PLAN OF CARE. WILL CONTINUE TO MONITOR PATIENT.
--- NOTE | 2020-01-08 17:20 | NUR ---
PATIENT HAD LARGE SOFT BROWN BM AND VOIDED. PATIENT CLEANED UP AND CHANGED. PATIENT REPOSITIONED TO OFFLOAD PRESSURE AREAS AND FOR COMFORT. PATIENT'S FAMILY AT BEDSIDE, EDUCATED THEM ABOUT ISOLATION PRECAUTIONS, THEY VERBALIZED UNDERSTANDING. SAFETY AND ISOLATION PRECAUTIONS IN PLACE, CALL LIGHT WITHIN REACH, WILL CONTINUE TO MONITOR PATIENT.
--- NOTE | 2020-01-08 17:40 | NUR ---
PATIENT C/O PAIN FROM POSITIONING ON HER SIDE. EDUCATED PATIENT ABOUT WHY PATIENT BEING TURNED Q2H. PATIENT VERBALIZED UNDERSTANDING BUT WANTS TO BE TURNED BACK ON HER BACK. DAUGHTER HORACE AT BEDSIDE, INFORMED HER ABOUT PATIENT'S REQUEST AND REASON FOR PATIENT BEING TURNED. SHE VERBALIZED UNDERSTANDING AND WILL SPEAK TO PATIENT.
--- NOTE | 2020-01-08 19:25 | NUR ---
REPORT GIVEN TO NETWORK SUPPORT NURSE AT BEDSIDE FOR CONTINUITY OF CARE. PATIENT IN STABLE CONDITION.
--- NOTE | 2020-01-08 19:26 | NUR ---
RECEIVED ENDORSEMENT AT BED SIDE FROM AM SHIFT RN. PATIENT LYING IN BED. AWAKE ALERT. ABLE TO MAKE NEEDS KNOWN. RESPIRATION EVEN AND UNLABORED. NO SOB NOTED. DENIES PAIN AT THIS TIME. ON CONTACT PRECAUTION FOR ESBL URINE. IV SITE AT RIGHT EJ. INTACT AND PATENT. NOTED SKIN TEAR AT PERINEAL AREA. PATIENT IS BEDBOUND. INCONTINENT. CONTACT ISO PRECAUTION OBSERVED AT ALL TIMES. SAFETY MEASURES IN PLACE. BED ALARM ACTIVATED. CALL LIGHT WITHIN REACH. PLAN OF CARE WAS DISCUSSED. WILL CONTINUE TO MONITOR.
[2020-01-08 20:00] VITALS: BP 132/60
--- NOTE | 2020-01-08 20:02 | NUR ---
RECEIVED PT FROM AM SHIFT. PT IN NO APPARENT RESPIRATORY DISTRESS AT THIS TIME; HR 77, RR 20, SPO2 91% ON 3L NC. ORDER TO KEEP O2 88%-92%. BREATH SOUNDS WERE COARSE. HHN TX GIVEN ORDERED WITH NO ADVERSE REACTION. BVM AT BEDSIDE AND HOB > 30. WILL CONTINUE TO MONITOR PT.
--- NOTE | 2020-01-08 21:19 | NUR ---
PATIENT IS AWAKE. ADMINISTERED ALL DUE MEDS PER MD ORDER. TOLERATED WELL. MEDICATION EDUCATION PROVIDED. NO C/O PAIN AT THIS TIME. NO DISTRESS NOTED. SAFETY MEASURES IN PLACE. LOW BED AND BED ALARM ACTIVATED. CALL LIGHT WITHIN REACH. WILL CONTINUE TO MONITOR.
[2020-01-08] MEDS: INSULIN LANTUS 100 UNITS/ML 10 ML VIAL SUBQ SCH (21:28)
--- NOTE | 2020-01-08 21:50 | NUR ---
PATIENT C/O NECK PAIN 04/25. REPOSITIONED. ENCOURAGED RELAXATION TECHNIQUE. PAIN MED GIVEN PO PER MD ORDER. TOLERATED WELL. NO SOB NOTED. WILL CONTINUE TO MONITOR.
[2020-01-09] VITALS: BP 156/62
--- NOTE | 2020-01-09 00:30 | NUR ---
PATIENT AGREED TO HAVE A BLOOD TRANSFUSION AND LET THE SIGNIFICANT OTHER SIGNED THE CONSENT. Addendum: 01/09/20 at 0601 by Austen Palacios RN WRONG PATIENT
--- NOTE | 2020-01-09 01:35 | NUR ---
PATIENT IS RESTLESS. KEEP COMPLAINING SHES HOT. CHECKED VITALS BP 141/62 P 81 SPO2 88 ON 3L NC O2. NO DISTRESS NOTED. INCREASED O2 TO 5L. PATIENT SPO2 INCREASED TO 94%, WILL CONTINUE TO MONITOR.
--- NOTE | 2020-01-09 02:04 | NUR ---
RECHECKED PATIENT. PATIENT IS ASLEEP. DECREASED O2 TO 3L. PATIENT IS SATING 92% WILL CONTINUE TO MONITOR.
[2020-01-09 04:00] VITALS: BP 156/62
--- NOTE | 2020-01-09 04:10 | NUR ---
VITALS WERE TAKEN. PATIENT IS IN STABLE CONDITION. WILL CONTINUE TO MONITOR.
[2020-01-09] MEDS ORDERED: MEROPENEM 500 MG VIAL IV ONE (04:52)
[2020-01-09] MEDS: MEROPENEM 500 MG in NACL 0.9% 50 ML IV SCH ×3 (04:55→20:13)
[2020-01-09] MEDS: DILTIAZEM 30 MG TAB PO SCH ×3 (04:55→20:13)
[2020-01-09] MEDS: LEVOTHYROXINE 0.05 MG TAB PO SCH (06:17)
[2020-01-09 06:29] LABS: ANION GAP 8.5 (8-16); CARBON DIOXIDE 31.6 mmol/L (21-32); CHLORIDE 85 mmol/L (98-107); CREATININE 0.3 mg/dL (0.6-1.3); GLUCOSE 142 mg/dL (74-106); POTASSIUM 4.1 mmol/L (3.5-5.1); UREA NITROGEN, BLOOD 4 mg/dL (7-18)
[2020-01-09 06:33] LABS: MAGNESIUM 1.4 mg/dL (1.8-2.4); PHOSPHORUS 3.3 mg/dL (2.5-4.9)
[2020-01-09 06:35] LABS: SODIUM SERUM 121 mmol/L (136-145)
[2020-01-09] MEDS: ALBUTEROL SULFATE/IPRATROPIU 3 ML SOL IH SCH ×3 (07:05→19:21)
[2020-01-09 07:16] LABS: BASOPHILS # (AUTO) 0.2 K/uL (0.00-0.22); BASOPHILS % (AUTO) 0.9 % (0.0-2.0); EOSINOPHILS # (AUTO) 0.2 K/uL (0-0.4); EOSINOPHILS % (AUTO) 0.9 % (0.0-4.0); HEMATOCRIT 24.3 % (36-48); HEMOGLOBIN 7.9 g/dL (12.0-16.0); LYMPHOCYTES % (AUTO) 5.6 % (20.5-51.1); MEAN CORPUSCULAR HEMOGLOBIN 25 pg (27-31); MEAN CORPUSCULAR HGB CONC 33 g/dL (33-37); MEAN CORPUSCULAR VOLUME 76.2 fL (80-94); MONOCYTES # (AUTO) 1.5 K/uL (0.8-1.0); NEUTROPHILS # (AUTO) 15.4 K/uL (1.8-7.7); NEUTROPHILS % (AUTO) 84.6 % (42.2-75.2); PLATELET COUNT (AUTO) 421 K/uL (140-450); RED BLOOD CELL COUNT(AUTO) 3.19 MIL/uL (4.20-5.40); WHITE BLOOD COUNT (AUTO) 18.2 K/uL (4.8-10.8)
[2020-01-09] MEDS: BLOOD GLUCOSE MONITORING 1 DEV DEV FS SCH ×4 (07:26→20:30)
--- NOTE | 2020-01-09 07:27 | NUR ---
ENDORSED PATIENT TO DAY SHIFT NURSE. PATIENT IS IN STABLE CONDITION.
--- NOTE | 2020-01-09 07:30 | NUR ---
RECEIVED REPORT FROM NIGHT NURSE. PATIENT IS IN BED, AAOX2. RESPIRATION EVEN AND UNLABORED. INTRODUCED SELF. RT AT BEDSIDE, PATIENT RECEIVING BREATHING TREATMENTS. IV INTACT AND PATENT TO RIGHT EJ WITH NS 30ML/HR INFUSING. CERVICAL COLLAR IN PLACE. BED IN LOW POSITION. BED ALARM ON. SAFETY MEASURES IN PLACE. CALL LIGHT WITHIN REACH.
[2020-01-09 08:00] VITALS: BP 156/50
[2020-01-09] MEDS: FERROUS SULFATE 325 MG TABEC PO SCH ×2 (08:00→16:31)
--- NOTE | 2020-01-09 08:05 | NUR ---
DR. MEDINA AT BEDSIDE.
[2020-01-09 08:08] LABS: FOLIC ACID 8.5 ng/mL (>3.0)
--- NOTE | 2020-01-09 08:10 | NUR ---
PATIENT WILL BE PLACED ON BIPAP. RT AT BEDSIDE. PATIENT IS CURRENTLY WITH O2 SATURATION 85-88% WITH O2 @ 5L NC. DR. ADAM IZQUIERDO.
--- NOTE | 2020-01-09 08:12 | NUR ---
PT PLACED ON BIPAP 12/5, R12, FIO2 40% DUE TO CRITICAL CO2 ABG RESULT AND PT DESATURATING ON 5L NC. DR. MEDINA AWARE. PROTECTA GEL PLACED UNDER MASK FOR SKIN PROTECTION. BIPAP IS PLUGGED INTO A RED OUTLET WITH ALARMS ON AND FUNCTIONING. WILL CONTINUE TO MONITOR.
[2020-01-09] MEDS ORDERED: MAG SULF 2000 MG/WATER PREMIX 100 ML IV SCH (08:15)
[2020-01-09] MEDS: FUROSEMIDE 20 MG TAB PO SCH (08:23)
[2020-01-09] MEDS: LISINOPRIL 20 MG TAB PO SCH (08:24)
[2020-01-09] MEDS: AMIODARONE 200 MG TAB PO SCH (08:24)
[2020-01-09] MEDS: ASPIRIN 81 MG TAB.CHEW PO SCH (08:25)
[2020-01-09] MEDS: DIGOXIN 0.125 MG TAB PO SCH (08:25)
[2020-01-09] MEDS: amLODIPine 5 MG TAB PO SCH ×2 (08:25→20:12)
[2020-01-09] MEDS: LACTOBACILLUS RHAMNOSUS GG 1 EACH CAP PO SCH (08:33)
[2020-01-09] MEDS: APIXABAN 2.5 MG TAB PO SCH ×2 (08:33→20:16)
[2020-01-09] MEDS: PANTOPRAZOLE 40 MG TABEC PO SCH (08:34)
[2020-01-09] MEDS: metFORMIN 500 MG TAB PO SCH ×2 (08:35→20:12)
--- NOTE | 2020-01-09 08:56 | NUR ---
BIPAP SETTINGS ADJUSTED DUE TO INADEQUATE VT DELIVERY. BIPAP SETTINGS 14/5, R12, FIO2 40%. PT REMAINS TACHYPNEIC. WILL CONTINUE TO MONITOR.
[2020-01-09] MEDS ORDERED: FUROSEMIDE 20 MG TAB PO SCH (09:00)
[2020-01-09] MEDS: methylPREDNISolone SS 40 MG/ML VIAL IVP SCH ×3 (09:49→20:13)
--- NOTE | 2020-01-09 10:09 | NUR ---
ABG RESULTS GIVEN TO . WILL MAINTAIN PT ON BIPAP. WILL CONTINUE TO MONITOR.
--- NOTE | 2020-01-09 10:20 | NUR ---
MESA CATHETER INSERTED WITH 16FR ORDERED. NOTED CLOUDY DARK YELLOW COLORED URINE WITH SEDIMENTS. PATIENT TOLERATED WELL.
--- NOTE | 2020-01-09 11:49 | NUR ---
PT REMAINS ON BIPAP AND TACHYPNEIC. SON IS BEDSIDE. SKIN INTACT. WILL CONTINUE TO MONITOR.
[2020-01-09 12:00] VITALS: BP 129/65
--- NOTE | 2020-01-09 12:35 | NUR ---
RT REMOVED BIPAP OFF PATIENT TO EAT LUNCH. PATIENT PLACED ON O2 @ 6L NC. PATIENT AWAKE, ALERT AND VERBALLY RESPONSIVE. SON AT BEDSIDE. WILL CONTINUE TO MONITOR.
[2020-01-09] MEDS: NACL 0.9% 1,000 ML IV SCH (12:49)
--- NOTE | 2020-01-09 12:50 | NUR ---
DR. CHOW AT BEDSIDE. PER DOCTOR CHOW, HOLD MEALS DUE TO PATIENT'S DECREASING O2 SATURATION.
--- NOTE | 2020-01-09 13:00 | NUR ---
DR. GONZALEZ AT BEDSIDE.
--- NOTE | 2020-01-09 13:00 | NUR ---
PATIENT IS NOW BACK ON BIPAP MACHINE.
--- NOTE | 2020-01-09 13:25 | NUR ---
REPORT GIVEN TO FANTA OSBORNE FOR CONTINUITY OF CARE.
--- NOTE | 2020-01-09 13:30 | NUR ---
NOTIFIED DR. MEDINA IN REGARDS TO PROVIDING ORDERS TO HOLD MEALS.
--- NOTE | 2020-01-09 13:30 | NUR ---
RECEIVED REPORT FROM NURSE GILBERT. PT IS IN BED AWAKE AND RELAXING. NO DISTRESS NOTED. NO COMPLAINS OF PAIN REPORTED. WILL CONTINUE TO MONITOR. CALL LIGHT IN REACH.
--- NOTE | 2020-01-09 14:06 | NUR ---
01/09/20 RD INITIAL ASSESSMENT COMPLETED PLEASE REFER TO NUTRITION ASSESSMENT UNDER CARE ACTIVITY FOR ESTIMATED NUTRITIONAL NEEDS. 1. PROVIDE MEALS WHEN APPROPRIATE FOR PATIENT 2. CONTINUE [facility] SOFT CCHO 60GM AND CARDIAC DIET TOLERATED 3. RECOMMEND GLUCERNA ONCE DAILY 4. RD TO FOLLOW-UP 2-3 DAYS, HIGH RISK BARBARA DUNCAN RD
--- NOTE | 2020-01-09 15:00 | NUR ---
PT IS SITTING IN BED AT THIS TIME. PT IS ALERT AND RESPONSIVE. NO DISTRESS NOTED. NO COMPLAINS OF PAIN. PT ON BIPAP MACHINE. TOLERATING WELL. CALL LIGHT IN REACH.
[2020-01-09 16:00] VITALS: BP 117/49
[2020-01-09] MEDS: ACETAMINOPHEN 325 MG TAB PO PRN (16:31)
[2020-01-09] MEDS: FUROSEMIDE 40 MG/4 ML VIAL IVP SCH (16:31)
--- NOTE | 2020-01-09 17:44 | NUR ---
PT REMAINS ON BIPAP TOLERATING WELL. BIPAP ALARMS REMAIN ON AND FUNCTIONING. PT REMAINS TACHYPNEIC NURSE AWARE OF PT STATUS.
--- NOTE | 2020-01-09 18:44 | NUR ---
PT IS SITTING IN BED AT THIS TIME. PT IS ALERT AND RESPONSIVE. NO DISTRESS NOTED. NO COMPLAINS OF PAIN. CALL LIGHT IN REACH.
--- NOTE | 2020-01-09 19:21 | NUR ---
RECEIVED PATIENT YELLING AND PULLING OFF BIPAP. PT REFUSING TO WEAR BIPAP. PATIENT AGITATED AND NON-COMPLIANT WIT CURRENT THERAPY. PLACED PATIENT ON 4L OXYMIZER TO MAINTAIN ADEQUATE OXYGENATION, PULSE OX 94%. RN AND MD MADE AWARE. SCHEDULED BREATHING TREATMENT ADMINISTERED TOLERATED TX WELL WITHOUT ADVERSE SIDE EFFECTS. WILL CONTINUE TO MONITOR.
--- NOTE | 2020-01-09 19:30 | NUR ---
SHIFT REPORT GIVEN TO ASSISTANT PROFESSOR OF ANTHROPOLOGY NURSE. PT'S IV DISLODGED. NIGHT NURSE AWARE. PT IS IN STABLE CONDITION. CALL LIGHT IN REACH.
--- NOTE | 2020-01-09 19:30 | NUR ---
RECEIVED BEDSIDE REPORT FROM DAY SHIFT NURSE. PATIENT IS AWAKE, ALERT RESPIRATION EVEN UNLABORED ON 3L NC O2. PATIENT IS GETTING BREATHING TREATMENT RIGHT NOW. SKIN IS WARM AND DRY. NO IV SITE NOTED. PER AM NURSE IV ACCIDENTALLY GOT PULLED OUT. ALL SAFETY MEASURES IN PLACE. BED IS AT LOW POSITION. CALL LIGHT WITHIN REACH. WILL CONTINUE TO MONITOR.
[2020-01-09 20:00] VITALS: BP 149/68
--- NOTE | 2020-01-09 20:00 | NUR ---
MESA CATHETER DRAINING YELLOW URINE NOTED
--- NOTE | 2020-01-09 20:00 | NUR ---
INITIAL ASSESSMENT DONE. VITALS WERE TAKEN. INSERTED IV TO THE LEFT FOREARM 22G TOLERATING IT WELL. WILL CONTINUE TO MONITOR.
[2020-01-09] MEDS: INSULIN LANTUS 100 UNITS/ML 10 ML VIAL SUBQ SCH (20:30)
--- NOTE | 2020-01-09 20:30 | NUR ---
ALL SCHEDULED MEDS WERE GIVEN PER ORDER. NO ASE NOTED. WILL CONTINUE TO MONITOR
--- NOTE | 2020-01-09 21:40 | NUR ---
CHECKED PATIENT. PATIENT SLEEPING RESPIRATION EVEN UNLABORED ON 5L OXIMIZER. WILL CONTINUE TO MONITOR.
[2020-01-10] VITALS: BP 150/56
--- NOTE | 2020-01-10 | NUR ---
VITALS WERE TAKEN. PATIENT IS IN STABLE CONDITION. NO DISTRESS NOTED. WILL CONTINUE TO MONITOR.
--- NOTE | 2020-01-10 02:09 | NUR ---
CHECKED PATIENT. PATIENT SLEEPING RESPIRATION EVEN UNLABORED ON 5L OXYMIZER. NO DISTRESS NOTED. WILL CONTINUE TO MONITOR
--- NOTE | 2020-01-10 03:48 | NUR ---
PATIENT C-COLLAR PAD SOILED. CHANGED C-COLLAR PAD PER ORDER.
[2020-01-10 04:00] VITALS: BP 137/57
--- NOTE | 2020-01-10 04:38 | NUR ---
VITALS WERE TAKEN. PROVIDED PATIENT BED BATH AND GOOD PERICARE AND MESA CATHETER CARE. WILL CONTINUE TO MONITOR
[2020-01-10] MEDS: MEROPENEM 500 MG in NACL 0.9% 50 ML IV SCH ×3 (04:57→22:00)
[2020-01-10] MEDS: DILTIAZEM 30 MG TAB PO SCH ×3 (04:58→22:02)
[2020-01-10] MEDS: methylPREDNISolone SS 40 MG/ML VIAL IVP SCH ×3 (04:58→22:03)
[2020-01-10] MEDS: INSULIN LISPRO SLIDING SCALE 100 UNITS/ML VIAL SUBQ PRN ×4 (05:34→22:06)
[2020-01-10] MEDS: LEVOTHYROXINE 0.05 MG TAB PO SCH (05:42)
[2020-01-10 06:09] LABS: BASOPHILS % (AUTO) 0.2 % (0.0-2.0); HEMATOCRIT 24.4 % (36-48); HEMOGLOBIN 7.8 g/dL (12.0-16.0); LYMPHOCYTES # (AUTO) 0.7 K/uL (2.5-16.5); LYMPHOCYTES % (AUTO) 6.6 % (20.5-51.1); MEAN CORPUSCULAR HEMOGLOBIN 25 pg (27-31); MEAN CORPUSCULAR HGB CONC 32 g/dL (33-37); MEAN CORPUSCULAR VOLUME 78.6 fL (80-94); MONOCYTES # (AUTO) 0.4 K/uL (0.8-1.0); MONOCYTES % (AUTO) 3.5 % (1.7-9.3); NEUTROPHILS # (AUTO) 9.8 K/uL (1.8-7.7); NEUTROPHILS % (AUTO) 89.7 % (42.2-75.2); PLATELET COUNT (AUTO) 415 K/uL (140-450); RED CELL DISTRIBUTION WIDTH 16.3 % (11.6-13.7); WHITE BLOOD COUNT (AUTO) 10.9 K/uL (4.8-10.8)
[2020-01-10 06:29] LABS: ANION GAP 7.2 (8-16); CARBON DIOXIDE 34.6 mmol/L (21-32); CHLORIDE 88 mmol/L (98-107); CREATININE 0.4 mg/dL (0.6-1.3); GLUCOSE 174 mg/dL (74-106); POTASSIUM 3.8 mmol/L (3.5-5.1); SODIUM SERUM 126 mmol/L (136-145); UREA NITROGEN, BLOOD 6 mg/dL (7-18)
[2020-01-10 06:39] LABS: MAGNESIUM 1.9 mg/dL (1.8-2.4); PHOSPHORUS 2.9 mg/dL (2.5-4.9)
[2020-01-10] MEDS: BLOOD GLUCOSE MONITORING 1 DEV DEV FS SCH ×4 (06:40→21:00)
[2020-01-10] MEDS: ALBUTEROL SULFATE/IPRATROPIU 3 ML SOL IH SCH ×3 (06:58→20:11)
--- NOTE | 2020-01-10 07:18 | NUR ---
ENDORSED PATIENT TO DAY SHIFT NURSE. PATIENT IS IN STABLE CONDITION.
--- NOTE | 2020-01-10 07:20 | NUR ---
RECEIVED BEDSIDE REPORT FROM NIGHT NURSE. PATIENT IN BED, AAOX3. NO S/S OF DISTRESS NOTED. INTRODUCED SELF. OXIMIZER CANNULA IN PLACE WITH OXIMIZER @ 5L. O2 SAT 98%. IV TO LEFT FOREARM INTACT AND PATENT. CERVICAL COLLAR IN PLACE. MESA CATHETER INTACT AND DRAINING YELLOW CLOUDY URINE. BED IN LOW POSITION. BED ALARM ON. SAFETY MEASURES IN PLACE. PLANS OF CARE DISCUSSED. CALL LIGHT WITHIN REACH.
[2020-01-10 08:00] VITALS: BP 137/48
[2020-01-10] MEDS: LACTOBACILLUS RHAMNOSUS GG 1 EACH CAP PO SCH (08:22)
[2020-01-10] MEDS: LISINOPRIL 20 MG TAB PO SCH (08:23)
[2020-01-10] MEDS: PANTOPRAZOLE 40 MG TABEC PO SCH (08:23)
[2020-01-10] MEDS: metFORMIN 500 MG TAB PO SCH ×2 (08:24→22:02)
[2020-01-10] MEDS: AMIODARONE 200 MG TAB PO SCH (08:25)
[2020-01-10] MEDS: APIXABAN 2.5 MG TAB PO SCH ×2 (08:26→22:03)
[2020-01-10] MEDS: FERROUS SULFATE 325 MG TABEC PO SCH ×2 (08:26→17:35)
[2020-01-10] MEDS: ASPIRIN 81 MG TAB.CHEW PO SCH (08:27)
[2020-01-10] MEDS: amLODIPine 5 MG TAB PO SCH ×2 (08:27→22:02)
[2020-01-10] MEDS: FUROSEMIDE 40 MG/4 ML VIAL IVP SCH ×2 (08:28→17:35)
--- NOTE | 2020-01-10 09:00 | NUR ---
PATIENT IN BED, RESTING QUIETLY, AAOX3, WITH OXIMIZER ON @ 3L. RESPIRATORY EVEN AND UNLABORED. HOB ELEVATED. PATIENT REPOSITIONED FOR COMFORT. CALL LIGHT WITHIN REACH.
--- NOTE | 2020-01-10 11:00 | NUR ---
PATIENT ASLEEP, RESPIRATION EVEN AND UNLABORED. OXIMIZER IN PLACE @ 3L. MESA CATHETER DRAINING CLOUDY YELLOW COLORED URINE. BED IN LOW POSITION. BED ALARM ON. SAFETY MEASURES IN PLACE. CALL LIGHT WITHIN REACH.
--- NOTE | 2020-01-10 11:15 | NUR ---
DR. CHOW AT BEDSIDE. PER DR. CHOW PATIENT MAY NOW RESUME WITH MEALS. NOTIFIED DR. KNIGHT FOR DIET ORDERS.
[2020-01-10 12:00] VITALS: BP 116/65
[2020-01-10] MEDS: NACL 0.9% 1,000 ML IV SCH (13:05)
--- NOTE | 2020-01-10 13:30 | NUR ---
PATIENT IN BED, REPOSITIONED FOR COMFORT. AAOX2-3. NO S/S OF DISTRESS NOTED AT THIS TIME. OXIMIZER IN PLACE @ 3L. O2 SAT 94%. CALL LIGHT WITHIN REACH.
--- NOTE | 2020-01-10 15:30 | NUR ---
ROUNDS MADE. PATIENT ASLEEP, EASILY AROUSABLE BY NAME OR TOUCH. OXIMIZER IN PLACE @ 3L. NO S/S OF DISTRESS NOTED. CALL LIGHT WITHIN REACH.
[2020-01-10 16:00] VITALS: BP 114/64
--- NOTE | 2020-01-10 16:50 | NUR ---
Program Evaluator Note: Maximiliano Conteh from [facility] , fax , they do not have any prison beds available at this time. Maximiliano Rivas from [facility] , fax , they do not have a [facility] contract, therefore, cannot I left several messages for admission coordinator Hilda at [facility] , fax . I called and spoke with patient's son Sree Casas , informed him of above information. He stated he is still in agreement with patient returning to [facility] upon discharge. 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
--- NOTE | 2020-01-10 17:00 | NUR ---
PATIENT IN BED, PATIENT REPOSITIONED FOR COMFORT. NO S/S OF DISTRESS NOTED.
--- NOTE | 2020-01-10 17:30 | NUR ---
ROUNDS MADE. PATIENT AWAKE AND VERBALLY RESPONSIVE, EASILY AROUSABLE BY NAME OR TOUCH. OXIMIZER IN PLACE @ 3L. NO S/S OF DISTRESS NOTED. CALL LIGHT WITHIN REACH.
--- NOTE | 2020-01-10 18:52 | NUR ---
PATIENT EATING DINNER. AAOX3. PATIENT REMAINS STABLE. WILL ENDORSE TO NIGHT NURSE FOR CONTINUITY OF CARE.
[2020-01-10 20:00] VITALS: BP 147/59
--- NOTE | 2020-01-10 20:17 | NUR ---
RECEIVED PT FROM AM SHIFT. PT IN NO APPARENT RESPIRATORY DISTRESS AT THIS TIME; HR 94, RR 20, SPO2 94% ON 3L OXIMIZER. BREATH SOUNDS WERE COARSE. HHN TX GIVEN ORDERED WITH NO ADVERSE REACTION. PT INFORMED TO CALL RN OR NURSE OBGYN WHEN EXPERIENCING SOB. BiPAP ON BEDSIDE WHICH PT WILL BE PLACED ON TONIGHT. HOB > 30. WILL CONTINUE TO MONITOR PT.
--- NOTE | 2020-01-10 21:30 | NUR ---
REPORT RECEIVED FROM CHARGE NURSE. PT IN STABLE CONDITION. AAOX4. INTRODUCED SELF TO PT. BOARD UPDATED. NO COMPLAINTS OF PAIN. NO SOB ON 5L O2 VIA OXYMIZER. AFEBRILE. PT IS ON BEDREST DUE TO R HIP FRACTURE. MESA IN PLACE. IV SITE L FA 22G SL PATENT AND INTACT. SKIN WARM, DRY, AND NOT INTACT DUE TO PERINEAL AREA OPEN WOUND. BED LOCKED IN LOW POSITION. CALL SANTO WITHIN REACH. SAFETY PRECAUTION IN PLACE. ALL NEEDS MET AT THIS TIME.
--- NOTE | 2020-01-10 22:00 | NUR ---
MERREM HUNG AND RUNNING. SOLUMEDROL GIVEN IVP. CARDIZEM, ELIQUIS, METFORMIN, AND NORVASC. GIVEN PO. BS 259. 6 UNITS OF HUMALOG GIVEN SUBQ. 20 UNITS OF LANTUS GIVEN SUBQ. PT TOLERATED WELL.
[2020-01-10] MEDS: INSULIN LANTUS 100 UNITS/ML 10 ML VIAL SUBQ SCH (22:05)
--- NOTE | 2020-01-10 23:50 | NUR ---
PT AWAKE AND ALERT IN BED. NO S/S OF DISTRESS NOTED. WILL CONTINUE TO MONITOR.
[2020-01-11] VITALS (7 sets, daily range): BP systolic 122–152; BP diastolic 49–95
[2020-01-11 00:12] LABS: ANION GAP 8.2 (8-16); CARBON DIOXIDE 35.8 mmol/L (21-32); CHLORIDE 88 mmol/L (98-107); CREATININE 0.6 mg/dL (0.6-1.3); GLUCOSE 189 mg/dL (74-106); SODIUM SERUM 128 mmol/L (136-145); UREA NITROGEN, BLOOD 15 mg/dL (7-18)
--- NOTE | 2020-01-11 02:30 | NUR ---
PT AWAKE AND ALERT LAYING COMFORTABLY AND WATCHING TV. NO S/S OF DISTRESS NOTED. NO COMPLAINTS OF PAIN. NO SOB. AFEBRILE. WILL CONTINUE TO MONITOR.
--- NOTE | 2020-01-11 04:15 | NUR ---
PT SLEEPING COMFORTABLY BUT AROUSABLE. NO S/S OF DISTRESS NOTED. RESPIRATIONS EVEN, UNLABORED, AND WNL. WILL CONTINUE TO MONITOR.
[2020-01-11] MEDS: DILTIAZEM 30 MG TAB PO SCH ×3 (05:34→21:48)
[2020-01-11] MEDS: LEVOTHYROXINE 0.05 MG TAB PO SCH (05:34)
[2020-01-11] MEDS: MEROPENEM 500 MG in NACL 0.9% 50 ML IV SCH ×3 (05:34→21:44)
[2020-01-11] MEDS: methylPREDNISolone SS 40 MG/ML VIAL IVP SCH ×3 (05:34→21:46)
--- NOTE | 2020-01-11 05:34 | NUR ---
MERREM HUNG AND RUNNING. SOLUMEDROL GIVEN IVP. CARDIZEM AND SYNTHROID GIVEN PO. BS 195. 2 UNITS OF HUMALOG GIVEN. PT TOLERATED WELL.
[2020-01-11] MEDS: BLOOD GLUCOSE MONITORING 1 DEV DEV FS SCH ×4 (05:52→21:06)
[2020-01-11] MEDS: INSULIN LISPRO SLIDING SCALE 100 UNITS/ML VIAL SUBQ PRN ×4 (05:54→21:38)
[2020-01-11 06:18] LABS: HEMATOCRIT 23.6 % (36-48); HEMOGLOBIN 7.4 g/dL (12.0-16.0); MEAN CORPUSCULAR HEMOGLOBIN 25 pg (27-31); MEAN CORPUSCULAR HGB CONC 31 g/dL (33-37); PLATELET COUNT (AUTO) 457 K/uL (140-450); RED BLOOD CELL COUNT(AUTO) 2.99 MIL/uL (4.20-5.40); RED CELL DISTRIBUTION WIDTH 15.8 % (11.6-13.7); WHITE BLOOD COUNT (AUTO) 11.2 K/uL (4.8-10.8)
[2020-01-11 06:22] LABS: ANION GAP 7.4 (8-16); CARBON DIOXIDE 36.5 mmol/L (21-32); CHLORIDE 89 mmol/L (98-107); CREATININE 0.5 mg/dL (0.6-1.3); GLUCOSE 190 mg/dL (74-106); POTASSIUM 3.9 mmol/L (3.5-5.1); SODIUM SERUM 129 mmol/L (136-145); UREA NITROGEN, BLOOD 14 mg/dL (7-18)
[2020-01-11 06:33] LABS: MAGNESIUM 1.9 mg/dL (1.8-2.4)
--- NOTE | 2020-01-11 07:22 | NUR ---
REPORT GIVEN TO AM NURSE AT BEDSIDE. PT IN STABLE CONDITION.
[2020-01-11] MEDS: ALBUTEROL SULFATE/IPRATROPIU 3 ML SOL IH SCH ×3 (07:23→20:01)
--- NOTE | 2020-01-11 07:23 | NUR ---
Received bedside report from pm nurse Lencho. Pt resting in bed, awake, no signs of distress, respirations even & nonlabored on O2 @ 5Lpm via oxymizer. Left forearm IV intact & asymptomatic. Call light within reach.
[2020-01-11] MEDS: FERROUS SULFATE 325 MG TABEC PO SCH ×2 (08:00→16:20)
[2020-01-11 08:02] LABS: LYMPHOCYTES % (MANUAL) 7 % (20-46); MONOCYTES % (MANUAL) 5 % (5-12)
[2020-01-11] MEDS ORDERED: ALENDRONATE SODIUM 70 MG TAB PO SCH (09:00)
[2020-01-11] MEDS: FUROSEMIDE 40 MG/4 ML VIAL IVP SCH ×2 (09:41→16:19)
[2020-01-11] MEDS: ASPIRIN 81 MG TAB.CHEW PO SCH (09:41)
[2020-01-11] MEDS: amLODIPine 5 MG TAB PO SCH ×2 (09:41→21:50)
[2020-01-11] MEDS: metFORMIN 500 MG TAB PO SCH ×2 (09:41→21:49)
[2020-01-11] MEDS: LISINOPRIL 20 MG TAB PO SCH (09:41)
[2020-01-11] MEDS: AMIODARONE 200 MG TAB PO SCH (09:42)
[2020-01-11] MEDS: PANTOPRAZOLE 40 MG TABEC PO SCH (09:42)
[2020-01-11] MEDS: DIGOXIN 0.125 MG TAB PO SCH (09:42)
[2020-01-11] MEDS: LACTOBACILLUS RHAMNOSUS GG 1 EACH CAP PO SCH (09:42)
[2020-01-11] MEDS: APIXABAN 2.5 MG TAB PO SCH ×2 (09:55→21:59)
[2020-01-11] MEDS ORDERED: MERO500P2 IV (11:06)
[2020-01-11] MEDS: NACL 0.9% 1,000 ML IV SCH (12:30)
--- NOTE | 2020-01-11 13:30 | NUR ---
Pt resting in bed, awake, watching TV. No signs of distress. Respirations even & nonlabored on O2 @ 5Lpm via oximizer. Left forearm IV intact & asymptomatic. Call light within reach.
--- NOTE | 2020-01-11 15:22 | NUR ---
Pt vomited small amount clear yellowish emesis. Pt states he had headache, and headache was relieved after vomiting. Pt also states he starts feeling nauseated after taking po meds. No c/o nausea or headache at this time. Will cont to monitor.
[2020-01-11] MEDS ORDERED: SODIUM PHOSPHATE 15 MMOLE in NACL 0.9% 250 ML IV ONE (15:35)
--- NOTE | 2020-01-11 19:15 | NUR ---
RECEIVED PT FROM DAY SHIFT NURSE PT IS AAOX3 ON BED REST PT HAS OXIMIZER 4 LTS , NOT SOB NOTED , ON TELEMETRY SR, PT HAS HX GUILLIAN BARRE GENERALIZED WEAKNESS , ON TELEMETRY SR, MESA CATH DRAINING WELL YELLOW URINE INITIAL ASSESSMENT DONE
--- NOTE | 2020-01-11 20:06 | NUR ---
RECEIVED PT FROM AM SHIFT. PT IN NO APPARENT RESPIRATORY DISTRESS AT THIS TIME; HR 89, RR 20, SPO2 95% ON 4L OXIMIZER AND A COARSE BREATH SOUNDS ON THE UPPER LOBES; DIMINISHED BREATH SOUNDS ON LOWER LOBES. HHN TX GIVEN ORDERED WITH NO ADVERSE REACTION. PT INFORMED TO CALL RN OR GRADUATION COACH FOR HHN PRN TX WHEN EXPERIENCING SOB. HOB > 30. FAMILY AT BEDSIDE. WILL CONTINUE TO MONITOR PT.
--- NOTE | 2020-01-11 21:30 | NUR ---
RELATIVES AT BED SIDE FEEDING TH PT, PT REPOSITIONED BLOOD SUGAR TEST 265 COVERAGE WITH 6 UNITS SUBQ HUMALOG ORDER, FOLLOW PROTOCOL
[2020-01-11] MEDS: INSULIN LANTUS 100 UNITS/ML 10 ML VIAL SUBQ SCH (21:40)
[2020-01-12] VITALS: BP 147/53
--- NOTE | 2020-01-12 | NUR ---
VITAL SIGNS STABLE. AFEBRILE. REPOSITIONED BY SHOWER ROOM ATTENDANT. CALL LIGHT WITHIN REACH. ASLEEP. Addendum: 01/13/20 at 0219 by Daisy Gonzalez RN WRONG TIME AND DATED. CORRECT: 01/13/2020 0000
--- NOTE | 2020-01-12 | NUR ---
PT REPOSITIONED ON OXIMIZER ,ONTEL SR NOT DISTRESS NOTEE
[2020-01-12 04:00] VITALS: BP 137/41
--- NOTE | 2020-01-12 04:00 | NUR ---
SPONGE BATHGIVEN LINEN CHANGED , REPOSITIONED PT COOPERATIVE, ON TELMETRYSR AND FOEYCATHDRAINING WELL YELLOW URINE
[2020-01-12] MEDS: methylPREDNISolone SS 40 MG/ML VIAL IVP SCH ×3 (05:07→22:23)
[2020-01-12] MEDS: MEROPENEM 500 MG in NACL 0.9% 50 ML IV SCH ×3 (05:07→22:23)
[2020-01-12] MEDS: DILTIAZEM 30 MG TAB PO SCH ×3 (05:08→22:24)
[2020-01-12] MEDS: LEVOTHYROXINE 0.05 MG TAB PO SCH (05:21)
[2020-01-12] MEDS: BLOOD GLUCOSE MONITORING 1 DEV DEV FS SCH ×4 (06:16→22:21)
[2020-01-12] MEDS: INSULIN LISPRO SLIDING SCALE 100 UNITS/ML VIAL SUBQ PRN ×4 (06:21→22:38)
--- NOTE | 2020-01-12 06:23 | NUR ---
BLOOD SUGAR TEST 210 AND COVERAGE WITH 4 UNITS SUBQ HUMALOG ON LEFT ARM FOLLOW PROTOCOL
--- NOTE | 2020-01-12 06:25 | NUR ---
PT WILLBE ENDORSED TO DAY SHIFT NURSE FOR CONTINUE OF CRE
[2020-01-12 06:28] LABS: BASOPHILS % (AUTO) 0.3 % (0.0-2.0); HEMATOCRIT 22.5 % (36-48); HEMOGLOBIN 7.4 g/dL (12.0-16.0); LYMPHOCYTES # (AUTO) 0.4 K/uL (2.5-16.5); LYMPHOCYTES % (AUTO) 4.2 % (20.5-51.1); MEAN CORPUSCULAR HEMOGLOBIN 25 pg (27-31); MEAN CORPUSCULAR HGB CONC 33 g/dL (33-37); MEAN CORPUSCULAR VOLUME 76.6 fL (80-94); MONOCYTES # (AUTO) 0.5 K/uL (0.8-1.0); MONOCYTES % (AUTO) 5.8 % (1.7-9.3); NEUTROPHILS # (AUTO) 8.6 K/uL (1.8-7.7); NEUTROPHILS % (AUTO) 89.7 % (42.2-75.2); PLATELET COUNT (AUTO) 432 K/uL (140-450); RED BLOOD CELL COUNT(AUTO) 2.94 MIL/uL (4.20-5.40); WHITE BLOOD COUNT (AUTO) 9.5 K/uL (4.8-10.8)
[2020-01-12 06:51] LABS: ANION GAP 6.7 (8-16); CARBON DIOXIDE 37.6 mmol/L (21-32); CHLORIDE 91 mmol/L (98-107); CREATININE 0.5 mg/dL (0.6-1.3); GLUCOSE 202 mg/dL (74-106); POTASSIUM 4.3 mmol/L (3.5-5.1); SODIUM SERUM 131 mmol/L (136-145); UREA NITROGEN, BLOOD 16 mg/dL (7-18)
[2020-01-12 07:03] LABS: MAGNESIUM 1.7 mg/dL (1.8-2.4)
--- NOTE | 2020-01-12 07:10 | NUR ---
Received report from pm nurse Romina. Pt resting in bed, repositioned for comfort per pt request. Left forearm IV intact @ asymptomatic. Call light within reach.
[2020-01-12] MEDS: ALBUTEROL SULFATE/IPRATROPIU 3 ML SOL IH SCH ×3 (07:44→19:08)
[2020-01-12 08:00] VITALS: BP 132/47
[2020-01-12] MEDS: PANTOPRAZOLE 40 MG TABEC PO SCH (09:38)
[2020-01-12] MEDS: LACTOBACILLUS RHAMNOSUS GG 1 EACH CAP PO SCH (09:38)
[2020-01-12] MEDS: LISINOPRIL 20 MG TAB PO SCH (09:38)
[2020-01-12] MEDS: amLODIPine 5 MG TAB PO SCH ×2 (09:38→22:25)
[2020-01-12] MEDS: metFORMIN 500 MG TAB PO SCH ×2 (09:38→22:24)
[2020-01-12] MEDS: ASPIRIN 81 MG TAB.CHEW PO SCH (09:39)
[2020-01-12] MEDS: AMIODARONE 200 MG TAB PO SCH (09:39)
[2020-01-12] MEDS: FUROSEMIDE 40 MG/4 ML VIAL IVP SCH ×2 (09:39→17:31)
[2020-01-12] MEDS: FERROUS SULFATE 325 MG TABEC PO SCH ×2 (09:40→17:30)
[2020-01-12] MEDS: APIXABAN 2.5 MG TAB PO SCH ×2 (09:51→22:32)
[2020-01-12 12:00] VITALS: BP 146/54
[2020-01-12] MEDS: NACL 0.9% 1,000 ML IV SCH (13:40)
[2020-01-12 16:00] VITALS: BP 139/49
[2020-01-12] MEDS ORDERED: SODIUM PHOSPHATE 118 ML ENEM RC SCH (16:00)
[2020-01-12] MEDS ORDERED: MAG SULF 2000 MG/WATER PREMIX 50 ML IV SCH (17:00)
[2020-01-12] MEDS: POLYVINYL ALCOHOL 1.4% OP 15 ML SOL OP SCH (17:34)
--- NOTE | 2020-01-12 19:30 | NUR ---
ASSUMED CARE OF PATIENT, AWAKE. NO COMPLAINS. FAMILY AT BEDSIDE. CALL LIGHT WITHIN REACH. CARE BOARD UPDATED. PLAN OF CARE DISCUSSED WITH PATIENT AND FAMILY MEMBER AT BEDSIDE.
[2020-01-12 20:00] VITALS: BP 131/51
--- NOTE | 2020-01-12 21:00 | NUR ---
AT BEDSIDE, FAMILY UPDATED. ALL QUESTIONS ANSWERED AND PLAN OF CARE DISCUSSED WITH FAMILY. REPOSITIONED BY PORTABLE SAWMILL OPERATOR AND PER PATIENT REQUEST. CALL LIGHT WITHIN REACH.
--- NOTE | 2020-01-12 22:30 | NUR ---
DUE MEDS GIVEN. CALL LIGHT WITHIN REACH. NO COMPLAINS. HS SNACK GIVEN.
[2020-01-12] MEDS: INSULIN LANTUS 100 UNITS/ML 10 ML VIAL SUBQ SCH (22:36)
[2020-01-13 01:46] VITALS: BP 143/49
--- NOTE | 2020-01-13 02:19 | NUR ---
ASLEEP. NO DISTRESS. CALL LIGHT WITHIN REACH.
--- NOTE | 2020-01-13 04:00 | NUR ---
VITAL SIGNS STABLE. NO COMPLAINS. AFEBRILE. CALL LIGHT WITHIN REACH. REPOSITIONED AND PERICARE DONE BY MANAGER AVIATION.
[2020-01-13] MEDS: MEROPENEM 500 MG in NACL 0.9% 50 ML IV SCH ×3 (04:42→23:00)
[2020-01-13] MEDS: methylPREDNISolone SS 40 MG/ML VIAL IVP SCH ×3 (04:43→22:03)
[2020-01-13] MEDS: ACETAMINOPHEN 325 MG TAB PO PRN (04:43)
[2020-01-13] MEDS: DILTIAZEM 30 MG TAB PO SCH ×3 (04:43→22:04)
[2020-01-13 05:03] VITALS: BP 138/54
[2020-01-13] MEDS: BLOOD GLUCOSE MONITORING 1 DEV DEV FS SCH ×4 (05:50→23:00)
[2020-01-13] MEDS: LEVOTHYROXINE 0.05 MG TAB PO SCH (05:51)
[2020-01-13] MEDS: INSULIN LISPRO SLIDING SCALE 100 UNITS/ML VIAL SUBQ PRN ×3 (06:01→16:31)
[2020-01-13 06:27] LABS: BASOPHILS % (AUTO) 0.1 % (0.0-2.0); HEMATOCRIT 22.5 % (36-48); HEMOGLOBIN 7.5 g/dL (12.0-16.0); LYMPHOCYTES # (AUTO) 0.5 K/uL (2.5-16.5); LYMPHOCYTES % (AUTO) 4.2 % (20.5-51.1); MEAN CORPUSCULAR HEMOGLOBIN 25 pg (27-31); MEAN CORPUSCULAR HGB CONC 33 g/dL (33-37); MEAN CORPUSCULAR VOLUME 75.7 fL (80-94); MONOCYTES # (AUTO) 0.8 K/uL (0.8-1.0); NEUTROPHILS # (AUTO) 9.6 K/uL (1.8-7.7); NEUTROPHILS % (AUTO) 88.7 % (42.2-75.2); PLATELET COUNT (AUTO) 463 K/uL (140-450); RED BLOOD CELL COUNT(AUTO) 2.97 MIL/uL (4.20-5.40); RED CELL DISTRIBUTION WIDTH 16.2 % (11.6-13.7); WHITE BLOOD COUNT (AUTO) 10.8 K/uL (4.8-10.8)
--- NOTE | 2020-01-13 07:02 | NUR ---
ASLEEP. NO COMPLAINS. CALL LIGHT WITHIN REACH.
[2020-01-13 07:14] LABS: CARBON DIOXIDE 38.6 mmol/L (21-32); CHLORIDE 93 mmol/L (98-107); CREATININE 0.7 mg/dL (0.6-1.3); GLUCOSE 177 mg/dL (74-106); POTASSIUM 4.6 mmol/L (3.5-5.1); SODIUM SERUM 134 mmol/L (136-145); UREA NITROGEN, BLOOD 16 mg/dL (7-18)
[2020-01-13 07:19] LABS: MAGNESIUM 2.3 mg/dL (1.8-2.4); PHOSPHORUS 3.9 mg/dL (2.5-4.9)
[2020-01-13] MEDS: ALBUTEROL SULFATE/IPRATROPIU 3 ML SOL IH SCH ×3 (07:22→19:11)
--- NOTE | 2020-01-13 07:23 | NUR ---
ENDORSED CARE AT BEDSIDE WITH [place]IA JEWELL, PATIENT IN STABLE CONDITION.
--- NOTE | 2020-01-13 07:25 | NUR ---
SHIFT REPORT RECEIVED FROM INDUSTRIAL HYGIENIST NURSE. PT IS SLEEPING IN BED. NO DISTRESS NOTED. NO COMPLAINS OF PAIN. WILL CONTINUE TO MONITOR. CALL LIGHT IN REACH.
[2020-01-13 08:00] VITALS: BP 132/52
[2020-01-13] MEDS: FERROUS SULFATE 325 MG TABEC PO SCH ×2 (08:34→16:16)
[2020-01-13] MEDS: FUROSEMIDE 40 MG/4 ML VIAL IVP SCH ×2 (08:34→16:16)
[2020-01-13] MEDS: PANTOPRAZOLE 40 MG TABEC PO SCH (08:35)
[2020-01-13] MEDS: metFORMIN 500 MG TAB PO SCH ×2 (08:35→22:06)
[2020-01-13] MEDS: LACTOBACILLUS RHAMNOSUS GG 1 EACH CAP PO SCH (08:35)
[2020-01-13] MEDS: ASPIRIN 81 MG TAB.CHEW PO SCH (08:35)
[2020-01-13] MEDS: amLODIPine 5 MG TAB PO SCH ×2 (08:35→22:06)
[2020-01-13] MEDS: LISINOPRIL 20 MG TAB PO SCH (08:36)
[2020-01-13] MEDS: APIXABAN 2.5 MG TAB PO SCH (08:36)
[2020-01-13] MEDS: DIGOXIN 0.125 MG TAB PO SCH (08:36)
[2020-01-13] MEDS: AMIODARONE 200 MG TAB PO SCH (08:41)
[2020-01-13] MEDS: POLYVINYL ALCOHOL 1.4% OP 15 ML SOL OP SCH ×3 (08:41→16:16)
--- NOTE | 2020-01-13 09:49 | NUR ---
PT IS LYING IN BED AT THIS TIME. PT IS RESPONSIVE TO NAME. NO DISTRESS NOTED. NO COMPLAINS OF PAIN. CALL LIGHT IN REACH.
--- NOTE | 2020-01-13 11:56 | NUR ---
PT IS SITTING IN BED. PT IS AWAKE AND RESPONSIVE. PT SAYS SHE IS THIRSTY AND WANTS WATER. GAVE HER FEW SIPS OF WATER. TOLERATED WELL. NO COMPLAINS OF PAIN. CALL LIGHT IN REACH.
[2020-01-13 12:00] VITALS: BP 144/54
[2020-01-13] MEDS: NACL 0.9% 1,000 ML IV SCH (12:35)
--- NOTE | 2020-01-13 14:38 | NUR ---
01/13/20 RD FOLLOW UP COMPLETED PLEASE REFER TO NUTRITION ASSESSMENT UNDER CARE ACTIVITY FOR ESTIMATED NUTRITIONAL NEEDS. 1. CONTINUE [facility] SOFT CCHO 60GM AND CARDIAC DIET TOLERATED 2. CONTINUE GLUCERNA ONCE DAILY 3. CONTINUE ASSISTING PATIENT WITH MEALS 4. RD TO FOLLOW-UP 3-5 DAYS, MODERATE RISK BARBARA DUNCAN RD
--- NOTE | 2020-01-13 15:22 | NUR ---
Spoke to [facility] at [phone] and obtain an Auth number [id number] for transport on Thursday. citrus picker time 1 pm to [facility] at [address]. Please provide the room number at [facility] to the transport. D/C on Thursday. 01/15/20
[2020-01-13 16:00] VITALS: BP 130/63
[2020-01-13] MEDS: CARBAMIDE PEROXIDE 6.5% OT 15 ML BTL BOTH EARS SCH ×2 (16:32→23:00)
--- NOTE | 2020-01-13 17:29 | NUR ---
PT IS AWAKE AND ALERT AND TALKING TO FAMILY MEMBER BY BEDSIDE. NO DISTRESS NOTED. NO COMPLAINS OF PAIN. WILL CONTINUE TO MONITOR. CALL LIGHT IN REACH.
--- NOTE | 2020-01-13 19:25 | NUR ---
SHIFT REPORT GIVEN TO PRODUCT MARKETING EXECUTIVE NURSE. PT IS IN STABLE CONDITION. FAMILY BY BEDSIDE. CALL LIGHT IN REACH.
[2020-01-13 20:00] VITALS: BP 145/55
[2020-01-13] MEDS ORDERED: CARBAMIDE PEROXIDE 6.5% OT 15 ML BTL BOTH EARS SCH (21:00)
[2020-01-13] MEDS: DOCUSATE SODIUM 100 MG GELCAP PO PRN (22:13)
[2020-01-13] MEDS: INSULIN LANTUS 100 UNITS/ML 10 ML VIAL SUBQ SCH (23:56)
[2020-01-14] VITALS: BP 166/64
[2020-01-14] MEDS: MEROPENEM 500 MG in NACL 0.9% 50 ML IV SCH ×3 (05:17→20:30)
[2020-01-14] MEDS: methylPREDNISolone SS 40 MG/ML VIAL IVP SCH ×3 (05:18→20:21)
[2020-01-14] MEDS: DILTIAZEM 30 MG TAB PO SCH ×3 (05:20→20:21)
[2020-01-14] MEDS: LEVOTHYROXINE 0.05 MG TAB PO SCH (05:57)
[2020-01-14] MEDS: INSULIN LISPRO SLIDING SCALE 100 UNITS/ML VIAL SUBQ PRN ×4 (06:11→20:19)
[2020-01-14] MEDS: BLOOD GLUCOSE MONITORING 1 DEV DEV FS SCH ×4 (06:35→20:37)
[2020-01-14] MEDS: ALBUTEROL SULFATE/IPRATROPIU 3 ML SOL IH SCH ×3 (06:44→18:55)
[2020-01-14 06:55] LABS: HEMOGLOBIN 7.7 g/dL (12.0-16.0); LYMPHOCYTES # (AUTO) 0.5 K/uL (2.5-16.5); LYMPHOCYTES % (AUTO) 4.4 % (20.5-51.1); MEAN CORPUSCULAR HEMOGLOBIN 26 pg (27-31); MEAN CORPUSCULAR HGB CONC 34 g/dL (33-37); MEAN CORPUSCULAR VOLUME 76.6 fL (80-94); MONOCYTES # (AUTO) 0.8 K/uL (0.8-1.0); MONOCYTES % (AUTO) 7.2 % (1.7-9.3); NEUTROPHILS # (AUTO) 9.7 K/uL (1.8-7.7); NEUTROPHILS % (AUTO) 88.4 % (42.2-75.2); PLATELET COUNT (AUTO) 461 K/uL (140-450); RED BLOOD CELL COUNT(AUTO) 3.01 MIL/uL (4.20-5.40); RED CELL DISTRIBUTION WIDTH 16.9 % (11.6-13.7)
--- NOTE | 2020-01-14 07:28 | NUR ---
RECEIVED PT FROM CONCRETE HOPPER OPERATOR FOR CONTINUITY OF CARE. PT IS AAOX3, ABLE TO MAKE NEEDS KNOWN. PT IN NO APPARENT RESPIRATORY DISTRESS AT THIS TIME. PT ON 4L OXIMIZER WITH COARSE BREATH SOUNDS ON THE UPPER LOBES; DIMINISHED BREATH SOUNDS ON LOWER LOBES. PT HAS WOUND ON SACRAL AREA. DISCUSSED POC WITH PT AND PT VERBALIZED UNDERSTANDING. ALL SAFETY MEASURES IN PLACE. BED IN LOW POSITION, CALL LIGHT WITHIN REACH. WILL MONITOR PT THROUGHOUT SHIFT.
[2020-01-14 07:33] LABS: ANION GAP 7.3 (8-16); CARBON DIOXIDE 39.9 mmol/L (21-32); CHLORIDE 90 mmol/L (98-107); CREATININE 0.5 mg/dL (0.6-1.3); GLUCOSE 178 mg/dL (74-106); POTASSIUM 4.2 mmol/L (3.5-5.1); SODIUM SERUM 133 mmol/L (136-145); UREA NITROGEN, BLOOD 16 mg/dL (7-18)
[2020-01-14 07:53] VITALS: BP 153/56
[2020-01-14 08:10] VITALS: BP 140/56
[2020-01-14 08:11] LABS: PHOSPHORUS 3.8 mg/dL (2.5-4.9)
--- NOTE | 2020-01-14 08:20 | NUR ---
PT WAS BEING CLEANED AND REPOSITIONED AND SKIN TEAR ON BUTTOCK/PERIANAL AREA WAS NOTICED. PICTURE TAKEN AND PUT INTO CHART. AFTER CLEANING, Z-GUARD APPLIED TO AREA. MADE AWARE. PER MD, CONTINUE TO APPLY Z-GUARD AND REPOSITION PT Q2H OR SOONER.
[2020-01-14] MEDS: POLYVINYL ALCOHOL 1.4% OP 15 ML SOL OP SCH ×3 (09:06→17:50)
[2020-01-14] MEDS: CARBAMIDE PEROXIDE 6.5% OT 15 ML BTL BOTH EARS SCH ×2 (09:06→20:38)
[2020-01-14] MEDS: FUROSEMIDE 40 MG/4 ML VIAL IVP SCH ×2 (09:32→17:51)
[2020-01-14] MEDS: PANTOPRAZOLE 40 MG TABEC PO SCH (09:32)
[2020-01-14] MEDS: metFORMIN 500 MG TAB PO SCH ×2 (09:33→20:21)
[2020-01-14] MEDS: LISINOPRIL 20 MG TAB PO SCH (09:33)
[2020-01-14] MEDS: FERROUS SULFATE 325 MG TABEC PO SCH ×2 (09:33→17:50)
[2020-01-14] MEDS: amLODIPine 5 MG TAB PO SCH ×2 (09:34→20:20)
[2020-01-14] MEDS: LACTOBACILLUS RHAMNOSUS GG 1 EACH CAP PO SCH (09:34)
[2020-01-14] MEDS: AMIODARONE 200 MG TAB PO SCH (09:35)
[2020-01-14] MEDS: ASPIRIN 81 MG TAB.CHEW PO SCH (09:35)
--- NOTE | 2020-01-14 09:38 | NUR ---
ADMINISTERED MORNING MEDS TO PT. PT TOLERATED WELL. ALL NEEDS MET. WILL CONTINUE TO ROUND FREQUENTLY ON PT.
--- NOTE | 2020-01-14 11:45 | NUR ---
PT RESTING IN BED. ALL NEEDS MET. WILL CONTINUE TO ROUND FREQUENTLY ON PT.
[2020-01-14 12:00] VITALS: BP 141/55
[2020-01-14] MEDS: NACL 0.9% 1,000 ML IV SCH ×2 (12:49→20:24)
--- NOTE | 2020-01-14 13:42 | NUR ---
PT ASLEEP. SON AT BEDSIDE. ALL NEEDS MET.
--- NOTE | 2020-01-14 14:20 | NUR ---
SPOKE WITH SON ABOUT PT'S WORSENING SKIN TEAR ON HER BUTTOCK/PERIANAL AREA. I TOLD HIM SHE REFUSES TO STAY TURNED TO HER SIDES AND ONLY WANTS TO BE ON HER BACK. I EDUCATED SON ON IMPORTANCE OF OFF-LOADING PRESSURE AREAS TO PREVENT COMPROMISE TO SKIN. SON VERBALIZED UNDERSTANDING BUT TURNED PT TO HER BACK AFTER TEACHING.
[2020-01-14] MEDS ORDERED: BISACODYL 5 MG TABEC PO PRN (14:55)
--- NOTE | 2020-01-14 15:24 | NUR ---
PT EATING IN BED. SON BROUGHT HER HEALTHY FOOD FROM HOME. ALL NEEDS MET. WILL CONTINUE TO ROUND ON PT.
[2020-01-14 16:00] VITALS: BP 131/57
--- NOTE | 2020-01-14 17:48 | NUR ---
PT RESTING IN BED WITH SONS AT BEDSIDE. ALL NEEDS MET. WILL CONTINUE TO ROUND ON PT.
--- NOTE | 2020-01-14 19:30 | NUR ---
RECEIVED PATIENT FROM AM SHIFT NURSE FOR CONTINUITY OF CARE. RESPIRATIONS EVEN, UNLABORED. RT GIVING PATIENT BREATHING TREATMENT. PATIENT IS ABLE TO MAKE NEEDS KNOWN. SON IS ALSO AT BEDSIDE. IV SITE NOTED TO LEFT FOREARM 22G PATENT/INTACT, INFUSING FLUIDS WELL. F/C PATENT WITH YELLOW URINE DRAINING TO GRAVITY. ALL NEEDS ATTENDED TO. NO C/O PAIN. NO S/SX ACUTE DISTRESS. CALL LIGHT WITHIN REACH. WILL CONTINUE TO MONITOR.
--- NOTE | 2020-01-14 19:30 | NUR ---
ENDORSED PT TO PRINTED CIRCUIT BOARD PCB DESIGNER FOR CONTINUITY OF CARE. PT IN STABLE CONDITION AT THIS TIME.
[2020-01-14 20:00] VITALS: BP 150/73
[2020-01-14] MEDS ORDERED: INSULIN LANTUS 100 UNITS/ML 10 ML VIAL SUBQ SCH (21:00)
--- NOTE | 2020-01-14 21:06 | NUR ---
PATIENT AWAKE AND IN STABLE CONDITION. NO C/O PAIN. NO S/SX ACUTE DISTRESS. CALL LIGHT WITHIN REACH. WILL CONTINUE TO MONITOR.
--- NOTE | 2020-01-14 23:00 | NUR ---
PATIENT AWAKE AND IN STABLE CONDITION. REPOSITIONED TO MAINTAIN SKIN INTEGRITY. NO C/O PAIN. NO S/SX ACUTE DISTRESS. CALL LIGHT WITHIN REACH. WILL CONTINUE TO MONITOR.
[2020-01-15] VITALS: BP 138/49
--- NOTE | 2020-01-15 01:17 | NUR ---
MADE ROUNDS. PATIENT ASLEEP AND IN STABLE CONDITION. NO C/O PAIN. NO S/SX ACUTE DISTRESS. REPOSITIONED PATIENT TO MAINTAIN SKIN INTEGRITY. CALL LIGHT WITHIN REACH. WILL CONTINUE TO MONITOR.
--- NOTE | 2020-01-15 03:00 | NUR ---
MADE ROUNDS. PATIENT ASLEEP AND IN STABLE CONDITION. NO C/O PAIN. NO S/SX ACUTE DISTRESS. CALL LIGHT WITHIN REACH. WILL CONTINUE TO MONITOR.
[2020-01-15 04:00] VITALS: BP 141/53
[2020-01-15] MEDS: methylPREDNISolone SS 40 MG/ML VIAL IVP SCH ×2 (04:12→12:44)
[2020-01-15] MEDS: MEROPENEM 500 MG in NACL 0.9% 50 ML IV SCH (04:13)
[2020-01-15] MEDS: DILTIAZEM 30 MG TAB PO SCH ×2 (04:13→12:44)
[2020-01-15] MEDS: LEVOTHYROXINE 0.05 MG TAB PO SCH (05:34)
--- NOTE | 2020-01-15 05:45 | NUR ---
PATIENT ASLEEP AND IN STABLE CONDITION. DUE MEDS GIVEN. NO C/O PAIN. NO S/SX ACUTE DISTRESS. CALL LIGHT WITHIN REACH. WILL CONTINUE TO MONITOR.
[2020-01-15] MEDS: INSULIN LISPRO SLIDING SCALE 100 UNITS/ML VIAL SUBQ PRN ×3 (06:03→12:48)
[2020-01-15] MEDS: ALBUTEROL SULFATE/IPRATROPIU 3 ML SOL IH SCH ×2 (06:05→13:00)
[2020-01-15 07:08] LABS: ANION GAP 4.3 (8-16); CHLORIDE 94 mmol/L (98-107); CREATININE 0.5 mg/dL (0.6-1.3); GLUCOSE 165 mg/dL (74-106); POTASSIUM 3.6 mmol/L (3.5-5.1); SODIUM SERUM 137 mmol/L (136-145); UREA NITROGEN, BLOOD 15 mg/dL (7-18)
[2020-01-15 07:12] LABS: MAGNESIUM 1.9 mg/dL (1.8-2.4); PHOSPHORUS 3.3 mg/dL (2.5-4.9)
[2020-01-15 07:27] LABS: CARBON DIOXIDE 42.3 mmol/L (21-32)
--- NOTE | 2020-01-15 07:30 | NUR ---
RECEIVED PT FROM REAL ESTATE PROCESSOR NURSEBARBARA, PT IS AWAKE AND SEATED ON THE BED WITH A NECK COLLAR IN PLACE, PT HAS HX OF GBS, MESA CATHETER IN PLACE, IV LINE NOTED ON THE LEFT FA G. 22 WITH NS IVF INFUSING AT 10ML/HR, INTACT, SCD IN PLACE, PT IS ON O2 2L NC, SKIN TEAR NOTED ON THE BILATERAL BUTTOCKS CHEEKS, PT DENIES PAIN AND NO SIGN OF DISTRESS NOTED. WILL CONTINUE TO MONITOR PT.
[2020-01-15 07:32] LABS: BASOPHILS % (AUTO) 0.1 % (0.0-2.0); HEMATOCRIT 23.6 % (36-48); HEMOGLOBIN 7.8 g/dL (12.0-16.0); LYMPHOCYTES # (AUTO) 0.4 K/uL (2.5-16.5); MEAN CORPUSCULAR HEMOGLOBIN 25 pg (27-31); MEAN CORPUSCULAR HGB CONC 33 g/dL (33-37); MEAN CORPUSCULAR VOLUME 76.7 fL (80-94); MONOCYTES # (AUTO) 0.8 K/uL (0.8-1.0); MONOCYTES % (AUTO) 7.3 % (1.7-9.3); NEUTROPHILS # (AUTO) 9.8 K/uL (1.8-7.7); PLATELET COUNT (AUTO) 484 K/uL (140-450); RED BLOOD CELL COUNT(AUTO) 3.08 MIL/uL (4.20-5.40); RED CELL DISTRIBUTION WIDTH 16.5 % (11.6-13.7)
[2020-01-15 08:00] VITALS: BP 140/74
[2020-01-15] MEDS: BLOOD GLUCOSE MONITORING 1 DEV DEV FS SCH ×2 (08:02→11:45)
--- NOTE | 2020-01-15 08:02 | NUR ---
PT'S BLOOD GLUCOSE WAS CHECKED AND RESULT IS 168 AND INSULIN COVERAGE WILL BE GIVEN TO PT.
[2020-01-15] MEDS ORDERED: FER325 PO (08:51)
[2020-01-15] MEDS ORDERED: PRED20TA5 PO (08:51)
[2020-01-15] MEDS ORDERED: INSU100S22 SUBQ (08:51)
[2020-01-15] MEDS ORDERED: LISI-420 PO (08:51)
[2020-01-15 08:55] LABS: LYMPHOCYTES % (AUTO) 3.3 % (20.5-51.1); NEUTROPHILS % (AUTO) 89.3 % (42.2-75.2)
[2020-01-15] MEDS: POLYVINYL ALCOHOL 1.4% OP 15 ML SOL OP SCH ×2 (09:07→12:45)
[2020-01-15] MEDS: CARBAMIDE PEROXIDE 6.5% OT 15 ML BTL BOTH EARS SCH (09:08)
[2020-01-15] MEDS: FUROSEMIDE 40 MG/4 ML VIAL IVP SCH (09:12)
--- NOTE | 2020-01-15 09:12 | NUR ---
PT IS AWAKE AND WAS GIVEN THE SCHEDULED AM MEDICATIONS ASSISTED BY A STUDENT NURSE, AND PROFESSOR GUIDE, PT TOLERATED WELL, TEACHINGS, SIDE EFFECTS OF MEDICATIONS WERE GIVEN TO PT AND VERBALIZED UNDERSTANDING, NO SIGN OF DISTRESS NOTED AND WILL MONITOR PT.
[2020-01-15] MEDS: DIGOXIN 0.125 MG TAB PO SCH (09:13)
[2020-01-15] MEDS: PANTOPRAZOLE 40 MG TABEC PO SCH (09:14)
[2020-01-15] MEDS: LACTOBACILLUS RHAMNOSUS GG 1 EACH CAP PO SCH (09:14)
[2020-01-15] MEDS: metFORMIN 500 MG TAB PO SCH (09:14)
[2020-01-15] MEDS: FERROUS SULFATE 325 MG TABEC PO SCH (09:15)
[2020-01-15] MEDS: LISINOPRIL 20 MG TAB PO SCH (09:15)
[2020-01-15] MEDS: ASPIRIN 81 MG TAB.CHEW PO SCH (09:16)
[2020-01-15] MEDS: AMIODARONE 200 MG TAB PO SCH (09:17)
--- NOTE | 2020-01-15 09:17 | NUR ---
@0900 HRS: CONTACTED [facility] TEL# [phone], SPOKE WITH SEAN, STATED THAT PT IS GOING TO ROOM 100-A ( NOT AN ISOLATION ROOM, JUST A REGULAR ROOM ). CONTACTED [facility]AN[facility] WELL ([phone]), ROOM NUMBER CONFIRMED. [facility] CONTACTED, SPOKE WITH KELECHI, STATED THAT [facility] WILL SENIOR EXECUTIVE COMPENSATION ANALYST PT AT 1300 HRS. JAYE ASSIGNED MADE AWARE.
[2020-01-15] MEDS: amLODIPine 5 MG TAB PO SCH (09:18)
--- NOTE | 2020-01-15 10:47 | NUR ---
PT WAS GIVEN INSULIN 2 UNITS ON THE LEFT UA, FOR THE BLOOD GLUCOSE OF 168, WILL MONITOR PT.
--- NOTE | 2020-01-15 11:09 | NUR ---
CALLED [facility] AT [phone] AND GAVE REPORT TO SEAN LONDONO REGARDING THE PT, REPORTED THAT PT WILL BE PLACE IN ROOM 100-A,AND WILL BE TRANSPORTED BY [facility] AND [facility] WORKER WILL BE AT 1300, REPORTED V/S AND MEDICATIONS GIVEN TO PT AND ALL INFORMATIONS RELEVANT TO THE ADMISSION AND CARE GIVEN TO PT AND SEAN LONDONO VERBALIZED UNDERSTANDING,
--- NOTE | 2020-01-15 11:21 | NUR ---
MERREM WAS GIVEN TO PT NOW VIA IVPB, WILL MONITOR PT.
--- NOTE | 2020-01-15 11:24 | NUR ---
BLOOD GLUCOSE CHECK DONE TO PT A RESULT IS 1278, INSULIN COVERAGE NEEDED
--- NOTE | 2020-01-15 11:30 | NUR ---
WOUND ASSESSMENT AND PICTURE WAS TAKEN ON THE SKIN TEAR ON THE BUTTOCKS, REINFORCED WITH OPTIFOAM DRESSING, APPLIED Z-GUARD.
[2020-01-15 12:00] VITALS: BP 150/78
[2020-01-15] MEDS ORDERED: MEROPENEM 1,000 MG in NACL 0.9% 100 ML IV SCH (12:00)
--- NOTE | 2020-01-15 12:48 | NUR ---
PT WAS GIVEN IV PUSH AND ORAL MEDICATIONS, TOLERATED, DR. BARRETO TALKING TO FAMILY NOW.
--- NOTE | 2020-01-15 13:16 | NUR ---
MESA CATHETER WAS REMOVED NOW, WILL MONITOR PT.
--- NOTE | 2020-01-15 14:50 | NUR ---
DISCHARGED PT TO [facility]IA [facility] WITH [facility] TRANSPORT ACCOMPANIED BY SON, TEACHINGS AND GIVEN TO PT AND VERBALIZED UNDERSTANDING, IV LINE, MESA CATHETER AND ARM AND WERE REMOVED AND PT IS STABLE AT THIS TIME.
[2020-01-15] MEDS ORDERED: acetaZOLAMIDE 250 MG TAB PO SCH (21:00)
== END 2020-01-15 14:50 | DRG 720 ==
LOC: MED 12:11 → MTU 15:05
PROVIDERS: ADMIT General Practice; ATTEND General Practice
PROC: B24BZZ4 Ultrasonography of Heart with Aorta, Transesophageal (ICD-10-PCS; principal; 2020-01-10)
DX: A41.51 Sepsis due to Escherichia coli [E. coli] (principal); J69.0 Pneumonitis due to inhalation of food and vomit; J96.21 Acute and chronic respiratory failure with hypoxia; I50.43 Acute on chronic combined systolic (congestive) and diastolic (congestive) heart failure; E44.0 Moderate protein-calorie malnutrition; G61.0 Guillain-Barre syndrome; I48.20 Chronic atrial fibrillation, unspecified; E11.69 Type 2 diabetes mellitus with other specified complication; R13.10 Dysphagia, unspecified; E83.39 Other disorders of phosphorus metabolism; D64.9 Anemia, unspecified; E11.9 Type 2 diabetes mellitus without complications; I48.91 Unspecified atrial fibrillation; E83.42 Hypomagnesemia; R65.20 Severe sepsis without septic shock; E87.1 Hypo-osmolality and hyponatremia; N39.0 Urinary tract infection, site not specified; I11.0 Hypertensive heart disease with heart failure; K21.9 Gastro-esophageal reflux disease without esophagitis; J44.9 Chronic obstructive pulmonary disease, unspecified; E03.9 Hypothyroidism, unspecified; M81.0 Age-related osteoporosis without current pathological fracture; E66.9 Obesity, unspecified; I50.9 Heart failure, unspecified; J96.22 Acute and chronic respiratory failure with hypercapnia; J44.1 Chronic obstructive pulmonary disease with (acute) exacerbation; Z16.12 Extended spectrum beta lactamase (ESBL) resistance; Z96.659 Presence of unspecified artificial knee joint; Z68.33 Body mass index [BMI] 33.0-33.9, adult; Z90.49 Acquired absence of other specified parts of digestive tract; Z85.3 Personal history of malignant neoplasm of breast; Z90.11 Acquired absence of right breast and nipple
CPT/HCPCS: 36415; 36600; 71045; 73502; 80048; 80053; 80162; 80305; 81001; 82150; 82607; 82728; 82746; 82803; 82948; 83036; 83540; 83605; 83690; 83735; 83880; 83930; 83935; 84100; 84300; 84439; 84443; 84484; 85025; 85045; 85610; 85730; 87040; 87081; 87086; 87186; 93005; 93970; 94640; 94660; 96361; 96365; 97161-GP; 99285; C1758; J0696; J1815; J1940; J2185; J2543; J2920; J3475; J7030; J7060; Q0092